=== PATIENT | male | born 1965 | race African-American/Black ===

== ENCOUNTER 2017-07-14 10:46 | Emergency (ER) | payer OTHER ==
[2017-07-14 10:56] VITALS: TEMP 98.1
[2017-07-14 11:15] LABS: Glucose,Whole Blood 392 mg/dL (75-99)
[2017-07-14] MEDS ORDERED: SODIUM CHLORIDE 0.9% 1,000 ML IV ONE (11:45)
[2017-07-14] MEDS ORDERED: INSULIN ASPART 100 UNIT/ML 1 ML 10 ML VIAL SQ ONE (11:45)
[2017-07-14 12:17] VITALS: BP 135/92; PULSE 83; RESP 20
[2017-07-14 12:19] LABS: Basophils % (A) 0 %; Eosinophils % (A) 0 %; HCT 48.3 % (39.0-53.0); HGB 15.5 gm/dL (13.0-17.5); Lymphocytes # (A) 2.3 k/uL (1.0-4.8); Lymphocytes % (A) 31 %; MCHC 32.1 g/dL (31.0-37.0); MCV 90.1 fL (80.0-100.0); Mean Platelet Volume 9.1; Monocytes # (A) 0.4 k/uL (0-1.0); Monocytes % (A) 6 %; Neutrophils # (A) 4.5 k/uL (1.3-7.7); Neutrophils % (A) 61 %; Platelet Count 161 k/uL (150-450); RBC 5.36 m/uL (4.30-5.90); RDW 13.4 % (11.5-15.5); WBC 7.3 k/uL (3.8-10.6)
[2017-07-14 12:34] LABS: ALT 32 U/L (21-72); AST 29 U/L (17-59); Albumin 4.1 g/dL (3.5-5.0); Alkaline Phosphatase 81 U/L (38-126); Anion Gap 18 mmol/L; Blood Urea Nitrogen 20 mg/dL (9-20); Calcium 10.3 mg/dL (8.4-10.2); Carbon Dioxide 20 mmol/L (22-30); Chloride 99 mmol/L (98-107); Potassium 4.7 mmol/L (3.5-5.1); Sodium 137 mmol/L (137-145); Total Bilirubin 0.6 mg/dL (0.2-1.3); Total Protein 7.2 g/dL (6.3-8.2)
[2017-07-14 12:36] LABS: Glucose,Whole Blood 407 mg/dL (75-99)
--- NOTE | 2017-07-14 12:36 | ED ---
Recheck HPI - General Chief Complaint: Recheck/Abnormal Lab/Rx Stated Complaint: High blood sugar Time Seen by Provider: 07/14/17 11:35 Source: patient, RN notes reviewed Mode of arrival: ambulatory Limitations: no limitations - History of Present Illness Initial Comments: This a 52-year-old male presents emergency Department chief complaint of elevated blood sugar. Patient states that he used to be on metformin but states he took himself off it because his blood sugar was normal. Patient states that he has not been eating well states she's been eating very poorly actually. Patient states that he has polydipsia polyuria. Patient states he has an appointment with a new primary care physician on 31 of July. Patient is concerned because he knows blood sugar is elevated. He denies chest pain, shortness breath, headache or dizziness. Denies any nausea vomiting diarrhea constipation. - Related Data Home Medications Medication Instructions Recorded Confirmed Unable To Assess [Unable to Assess] 07/14/17 07/14/17 Allergies Allergy/AdvReac Type Severity Reaction Status Date / Time amoxicillin Allergy Rash/Hives Verified 07/14/17 12:27 Review of Systems ROS Statement: Those systems with pertinent positive or pertinent negative responses have been documented in the HPI. ROS Other: All systems not noted in ROS Statement are negative. Past Medical History Past Medical History: Hypertension Additional Past Medical History / Comment(s): Borderline diabetic, CHF History of Any Multi-Drug Resistant Organisms: None Reported Additional Past Surgical History / Comment(s): heart cath-no stent placement 2018 Past Psychological History: Anxiety Smoking Status: Current some day smoker Past Alcohol Use History: None Reported Past Drug Use History: None Reported General Exam Limitations: no limitations General appearance: alert, in no apparent distress Head exam: Present: atraumatic, normocephalic, normal inspection Eye exam: Present: normal appearance, PERRL, EOMI. Absent: scleral icterus, conjunctival injection, periorbital swelling ENT exam: Present: normal exam, mucous membranes moist Neck exam: Present: normal inspection. Absent: tenderness, meningismus, lymphadenopathy Respiratory exam: Present: normal lung sounds bilaterally. Absent: respiratory distress, wheezes, rales, rhonchi, stridor Cardiovascular Exam: Present: regular rate, normal rhythm, normal heart sounds. Absent: systolic murmur, diastolic murmur, rubs, gallop, clicks GI/Abdominal exam: Present: soft, normal bowel sounds. Absent: distended, tenderness, guarding, rebound, rigid Neurological exam: Present: alert, oriented X3, CN II-XII intact Skin exam: Present: warm, dry, intact, normal color. Absent: rash Course Vital Signs 07/14/17 07/14/17 10:52 12:15 Temperature 98.1 F Pulse Rate 71 83 Respiratory 18 20 Rate Blood Pressure 165/100 135/92 O2 Sat by Pulse 96 95 Oximetry Medical Decision Making - Medical Decision Making 52-year-old male presents from for hyperglycemia. Patient is hungry and DKA. Patient be admitted under city call. - Lab Data Result diagrams: 07/14/17 12:03 07/14/17 12:03 Lab Results 07/14/17 07/14/17 07/14/17 Range/Units 11:12 12:03 12:03 WBC 7.3 (3.8-10.6) k/uL RBC 5.36 (4.30-5.90) m/uL Hgb 15.5 (13.0-17.5) gm/dL Hct 48.3 (39.0-53.0) % MCV 90.1 (80.0-100.0) fL MCH 29.0 (25.0-35.0) pg MCHC 32.1 (31.0-37.0) g/dL RDW 13.4 (11.5-15.5) % Plt Count 161 (150-450) k/uL Neutrophils % 61 % Lymphocytes % 31 % Monocytes % 6 % Eosinophils % 0 % Basophils % 0 % Neutrophils # 4.5 (1.3-7.7) k/uL Lymphocytes # 2.3 (1.0-4.8) k/uL Monocytes # 0.4 (0-1.0) k/uL Eosinophils # 0.0 (0-0.7) k/uL Basophils # 0.0 (0-0.2) k/uL Sodium 137 (137-145) mmol/L Potassium 4.7 (3.5-5.1) mmol/L Chloride 99 (98-107) mmol/L Carbon Dioxide 20 L (22-30) mmol/L Anion Gap 18 mmol/L BUN 20 (9-20) mg/dL Creatinine 0.96 (0.66-1.25) mg/dL Est GFR (CKD-EPI)AfAm >90 (>60 ml/min/1.73 sqM) Est GFR (CKD-EPI)NonAf >90 (>60 ml/min/1.73 sqM) Glucose 472 H* (74-99) mg/dL POC Glucose (mg/dL) 392 H (75-99) mg/dL POC Glu Aircraft Maintenance Engineer ID Mari Beltran Calcium 10.3 H (8.4-10.2) mg/dL Total Bilirubin 0.6 (0.2-1.3) mg/dL AST 29 (17-59) U/L ALT 32 (21-72) U/L Alkaline Phosphatase 81 (38-126) U/L Total Protein 7.2 (6.3-8.2) g/dL Albumin 4.1 (3.5-5.0) g/dL Acetone, Qual Positive (Negative) 07/14/17 Range/Units 12:29 WBC (3.8-10.6) k/uL RBC (4.30-5.90) m/uL Hgb (13.0-17.5) gm/dL Hct (39.0-53.0) % MCV (80.0-100.0) fL MCH (25.0-35.0) pg MCHC (31.0-37.0) g/dL RDW (11.5-15.5) % Plt Count (150-450) k/uL Neutrophils % % Lymphocytes % % Monocytes % % Eosinophils % % Basophils % % Neutrophils # (1.3-7.7) k/uL Lymphocytes # (1.0-4.8) k/uL Monocytes # (0-1.0) k/uL Eosinophils # (0-0.7) k/uL Basophils # (0-0.2) k/uL Sodium (137-145) mmol/L Potassium (3.5-5.1) mmol/L Chloride (98-107) mmol/L Carbon Dioxide (22-30) mmol/L Anion Gap mmol/L BUN (9-20) mg/dL Creatinine (0.66-1.25) mg/dL Est GFR (CKD-EPI)AfAm (>60 ml/min/1.73 sqM) Est GFR (CKD-EPI)NonAf (>60 ml/min/1.73 sqM) Glucose (74-99) mg/dL POC Glucose (mg/dL) 407 H (75-99) mg/dL POC Glu Aircraft Maintenance Engineer ID Ruiz Rodrigues Calcium (8.4-10.2) mg/dL Total Bilirubin (0.2-1.3) mg/dL AST (17-59) U/L ALT (21-72) U/L Alkaline Phosphatase (38-126) U/L Total Protein (6.3-8.2) g/dL Albumin (3.5-5.0) g/dL Acetone, Qual (Negative) Disposition Clinical Impression: DKA (diabetic ketoacidoses) Disposition: ADMITTED IP TO THIS [facility] Condition: Stable Referrals: None,Stated [Primary Care Provider] - 1-2 days
[2017-07-14 12:46] LABS: Glucose 472 mg/dL (74-99)
--- NOTE | 2017-07-14 13:29 | ED ---
Medical Decision Making - Medical Decision Making I had extensive conversation with the patient regarding his current condition and how severe it is condition is. Patient states he understands that he is very sick but states that he cannot stay in the hospital because he has commitments outside of the hospital. I did explain that this is something he may from if not properly treated. Patient states he he understands this. Patient again refuses to stay in the hospital he is making clear decisions at this time. Patient will sign out AGAINST MEDICAL ADVICE. - Lab Data Result diagrams: 07/14/17 12:03 07/14/17 12:03 Lab Results 07/14/17 07/14/17 07/14/17 Range/Units 11:12 12:03 12:03 WBC 7.3 (3.8-10.6) k/uL RBC 5.36 (4.30-5.90) m/uL Hgb 15.5 (13.0-17.5) gm/dL Hct 48.3 (39.0-53.0) % MCV 90.1 (80.0-100.0) fL MCH 29.0 (25.0-35.0) pg MCHC 32.1 (31.0-37.0) g/dL RDW 13.4 (11.5-15.5) % Plt Count 161 (150-450) k/uL Neutrophils % 61 % Lymphocytes % 31 % Monocytes % 6 % Eosinophils % 0 % Basophils % 0 % Neutrophils # 4.5 (1.3-7.7) k/uL Lymphocytes # 2.3 (1.0-4.8) k/uL Monocytes # 0.4 (0-1.0) k/uL Eosinophils # 0.0 (0-0.7) k/uL Basophils # 0.0 (0-0.2) k/uL Sodium 137 (137-145) mmol/L Potassium 4.7 (3.5-5.1) mmol/L Chloride 99 (98-107) mmol/L Carbon Dioxide 20 L (22-30) mmol/L Anion Gap 18 mmol/L BUN 20 (9-20) mg/dL Creatinine 0.96 (0.66-1.25) mg/dL Est GFR (CKD-EPI)AfAm >90 (>60 ml/min/1.73 sqM) Est GFR (CKD-EPI)NonAf >90 (>60 ml/min/1.73 sqM) Glucose 472 H* (74-99) mg/dL POC Glucose (mg/dL) 392 H (75-99) mg/dL POC Glu [employer] Professional ID Mari Beltran Calcium 10.3 H (8.4-10.2) mg/dL Total Bilirubin 0.6 (0.2-1.3) mg/dL AST 29 (17-59) U/L ALT 32 (21-72) U/L Alkaline Phosphatase 81 (38-126) U/L Total Protein 7.2 (6.3-8.2) g/dL Albumin 4.1 (3.5-5.0) g/dL Acetone, Qual Positive (Negative) 07/14/17 Range/Units 12:29 WBC (3.8-10.6) k/uL RBC (4.30-5.90) m/uL Hgb (13.0-17.5) gm/dL Hct (39.0-53.0) % MCV (80.0-100.0) fL MCH (25.0-35.0) pg MCHC (31.0-37.0) g/dL RDW (11.5-15.5) % Plt Count (150-450) k/uL Neutrophils % % Lymphocytes % % Monocytes % % Eosinophils % % Basophils % % Neutrophils # (1.3-7.7) k/uL Lymphocytes # (1.0-4.8) k/uL Monocytes # (0-1.0) k/uL Eosinophils # (0-0.7) k/uL Basophils # (0-0.2) k/uL Sodium (137-145) mmol/L Potassium (3.5-5.1) mmol/L Chloride (98-107) mmol/L Carbon Dioxide (22-30) mmol/L Anion Gap mmol/L BUN (9-20) mg/dL Creatinine (0.66-1.25) mg/dL Est GFR (CKD-EPI)AfAm (>60 ml/min/1.73 sqM) Est GFR (CKD-EPI)NonAf (>60 ml/min/1.73 sqM) Glucose (74-99) mg/dL POC Glucose (mg/dL) 407 H (75-99) mg/dL POC Glu [employer] Professional ID Ruiz Rodrigues Calcium (8.4-10.2) mg/dL Total Bilirubin (0.2-1.3) mg/dL AST (17-59) U/L ALT (21-72) U/L Alkaline Phosphatase (38-126) U/L Total Protein (6.3-8.2) g/dL Albumin (3.5-5.0) g/dL Acetone, Qual (Negative) Disposition Clinical Impression: DKA (diabetic ketoacidoses) Disposition: Left Against Medical Advice Condition: Stable Referrals: None,Stated [Primary Care Provider] - 1-2 days
[2017-07-14] MEDS ORDERED: INSULIN REGULAR 100 UNIT in SODIUM CHLORIDE 0.9% 100 ML IV SCH (13:30)
[2017-07-14] MEDS ORDERED: SODIUM CHLORIDE 0.9% 1,000 ML IV SCH (13:30)
[2017-07-14 13:40] LABS: Glucose,Whole Blood 378 mg/dL (75-99)
[2017-07-14] MEDS ORDERED: D5-0.45% NACL WITH KCL 20MEQ/L 1,000 ML IV SCH (15:30)
== END 2017-07-14 14:05 | disposition left against medical advice (07) ==
LOC: EC 10:46
DX: E11.10 Type 2 diabetes mellitus with ketoacidosis without coma (principal); F17.200 Nicotine dependence, unspecified, uncomplicated; Z88.0 Allergy status to penicillin
CPT/HCPCS: 36415; 80053; 82009; 85025; 96360; 99284

== ENCOUNTER 2017-07-21 10:28 | Inpatient (IN) | payer OTHER ==
[2017-07-21] MEDS ORDERED: SODIUM CHLORIDE 0.9% 2,000 ML IV STA (10:45)
[2017-07-21] MEDS ORDERED: SODIUM CHLORIDE 0.9% 2,000 ML IV ONE (10:45)
[2017-07-21 11:30] LABS: Appearance,Urine Clear (Clear); Bilirubin,Urine Negative (Negative); Blood,Urine Negative (Negative); Color,Urine Light Yellow; Glucose,Urine (UA) 4+ (Negative); Leukocyte Esterase,Urine Negative (Negative); Nitrite,Urine Negative (Negative); Protein,Urine Negative (Negative); Urobilinogen,Urine <2.0 mg/dL (<2.0)
[2017-07-21 11:35] LABS: Basophils % (A) 0 %; Eosinophils % (A) 1 %; HCT 52.5 % (39.0-53.0); HGB 15.8 gm/dL (13.0-17.5); Hypochromasia Moderate; Lymphocytes # (A) 1.5 k/uL (1.0-4.8); Lymphocytes % (A) 21 %; MCH 28.3 pg (25.0-35.0); MCHC 30.1 g/dL (31.0-37.0); Mean Platelet Volume 9.9; Monocytes # (A) 0.4 k/uL (0-1.0); Monocytes % (A) 6 %; Neutrophils # (A) 4.9 k/uL (1.3-7.7); Neutrophils % (A) 69 %; Platelet Count 149 k/uL (150-450); RBC 5.59 m/uL (4.30-5.90); RDW 13.6 % (11.5-15.5); WBC 7.1 k/uL (3.8-10.6)
[2017-07-21 11:38] LABS: AST 21 U/L (17-59); Albumin 4.4 g/dL (3.5-5.0); Amylase 72 U/L (30-110); Blood Urea Nitrogen 20 mg/dL (9-20); Calcium 11.3 mg/dL (8.4-10.2); Carbon Dioxide 19 mmol/L (22-30); Chloride 95 mmol/L (98-107); Lipase 308 U/L (23-300); Potassium 4.8 mmol/L (3.5-5.1); Total Bilirubin 0.5 mg/dL (0.2-1.3); Total Protein 7.4 g/dL (6.3-8.2)
[2017-07-21 11:42] LABS: ALT 34 U/L (21-72); Alkaline Phosphatase 93 U/L (38-126); Anion Gap 22 mmol/L; Sodium 136 mmol/L (137-145)
[2017-07-21 11:50] LABS: Glucose 652 mg/dL (74-99)
[2017-07-21] MEDS ORDERED: INSULIN REGULAR 100 UNIT/ML VIAL IV ONE (11:54)
[2017-07-21 11:57] LABS: Ketones,Urine 2+ (Negative)
--- NOTE | 2017-07-21 11:58 | ED ---
Recheck HPI - General Chief Complaint: Recheck/Abnormal Lab/Rx Stated Complaint: High blood pressure/Sugar Time Seen by Provider: 07/21/17 10:45 Source: patient, RN notes reviewed Mode of arrival: ambulatory Limitations: no limitations - History of Present Illness Initial Comments: This a 32-year-old male present emergency department for recheck abnormal labs. Patient was here one week ago for hyperglycemia uncontrolled diabetes. Patient was supposed be admitted but patient refused at that time. Patient left AGAINST MEDICAL ADVICE. Patient returns today stating feels worse states that he cannot eat he states his blood sugars probably elevated and concerned about his blood pressure. He has no current chest pain or shortness of breath. Patient states is constant drinking fluids, has a urinating. Patient used to be on metformin. - Related Data Home Medications Medication Instructions Recorded Confirmed Atorvastatin Calcium [Lipitor] 40 mg PO DAILY 07/21/17 07/21/17 Carvedilol [Coreg] 12.5 mg PO BID 07/21/17 07/21/17 Furosemide [Lasix] 40 mg PO DAILY 07/21/17 07/21/17 Lisinopril [Prinivil] 20 mg PO DAILY 07/21/17 07/21/17 Allergies Allergy/AdvReac Type Severity Reaction Status Date / Time amoxicillin Allergy Rash/Hives Verified 07/21/17 10:56 Review of Systems ROS Statement: Those systems with pertinent positive or pertinent negative responses have been documented in the HPI. ROS Other: All systems not noted in ROS Statement are negative. Past Medical History Past Medical History: Diabetes Mellitus, Hypertension Additional Past Medical History / Comment(s): CHF History of Any Multi-Drug Resistant Organisms: None Reported Additional Past Surgical History / Comment(s): heart cath-no stent placement 2018 Past Psychological History: Anxiety Smoking Status: Current some day smoker Past Alcohol Use History: None Reported Past Drug Use History: None Reported General Exam Limitations: no limitations General appearance: alert, in no apparent distress Head exam: Present: atraumatic, normocephalic, normal inspection Eye exam: Present: normal appearance, PERRL, EOMI. Absent: scleral icterus, conjunctival injection, periorbital swelling ENT exam: Present: normal exam, normal oropharynx, mucous membranes moist Neck exam: Present: normal inspection. Absent: tenderness, meningismus, lymphadenopathy Respiratory exam: Present: normal lung sounds bilaterally. Absent: respiratory distress, wheezes, rales, rhonchi, stridor Cardiovascular Exam: Present: normal rhythm, tachycardia, normal heart sounds. Absent: systolic murmur, diastolic murmur, rubs, gallop, clicks GI/Abdominal exam: Present: soft, normal bowel sounds. Absent: distended, tenderness, guarding, rebound, rigid Skin exam: Present: warm, dry, intact, normal color. Absent: rash Course Vital Signs 07/21/17 07/21/17 10:39 11:30 Temperature 98.1 F 97.2 F L Pulse Rate 108 H 101 H Respiratory 18 20 Rate Blood Pressure 162/96 156/97 O2 Sat by Pulse 94 L 99 Oximetry Medical Decision Making - Lab Data Result diagrams: 07/21/17 11:15 07/21/17 11:15 Lab Results 07/21/17 07/21/17 07/21/17 Range/Units 11:15 11:15 11:15 WBC 7.1 (3.8-10.6) k/uL RBC 5.59 (4.30-5.90) m/uL Hgb 15.8 (13.0-17.5) gm/dL Hct 52.5 (39.0-53.0) % MCV 94.0 (80.0-100.0) fL MCH 28.3 (25.0-35.0) pg MCHC 30.1 L (31.0-37.0) g/dL RDW 13.6 (11.5-15.5) % Plt Count 149 L (150-450) k/uL Neutrophils % 69 % Lymphocytes % 21 % Monocytes % 6 % Eosinophils % 1 % Basophils % 0 % Neutrophils # 4.9 (1.3-7.7) k/uL Lymphocytes # 1.5 (1.0-4.8) k/uL Monocytes # 0.4 (0-1.0) k/uL Eosinophils # 0.0 (0-0.7) k/uL Basophils # 0.0 (0-0.2) k/uL Hypochromasia Moderate Sodium 136 L (137-145) mmol/L Potassium 4.8 (3.5-5.1) mmol/L Chloride 95 L (98-107) mmol/L Carbon Dioxide 19 L (22-30) mmol/L Anion Gap 22 mmol/L BUN 20 (9-20) mg/dL Creatinine 0.97 (0.66-1.25) mg/dL Est GFR (CKD-EPI)AfAm >90 (>60 ml/min/1.73 sqM) Est GFR (CKD-EPI)NonAf >90 (>60 ml/min/1.73 sqM) Glucose 652 H* (74-99) mg/dL Calcium 11.3 H (8.4-10.2) mg/dL Total Bilirubin 0.5 (0.2-1.3) mg/dL AST 21 (17-59) U/L ALT 34 (21-72) U/L Alkaline Phosphatase 93 (38-126) U/L Total Protein 7.4 (6.3-8.2) g/dL Albumin 4.4 (3.5-5.0) g/dL Amylase 72 (30-110) U/L Lipase 308 H (23-300) U/L Urine Color Light Yellow Urine Appearance Clear (Clear) Urine pH 5.0 (5.0-8.0) Ur Specific [place] 1.030 (1.001-1.035) Urine Protein Negative (Negative) Urine Glucose (UA) 4+ H (Negative) Urine Ketones 2+ H (Negative) Urine Blood Negative (Negative) Urine Nitrite Negative (Negative) Urine Bilirubin Negative (Negative) Urine Urobilinogen <2.0 (<2.0) mg/dL Ur Leukocyte Esterase Negative (Negative) Acetone, Qual (Negative) 07/21/17 Range/Units 11:15 WBC (3.8-10.6) k/uL RBC (4.30-5.90) m/uL Hgb (13.0-17.5) gm/dL Hct (39.0-53.0) % MCV (80.0-100.0) fL MCH (25.0-35.0) pg MCHC (31.0-37.0) g/dL RDW (11.5-15.5) % Plt Count (150-450) k/uL Neutrophils % % Lymphocytes % % Monocytes % % Eosinophils % % Basophils % % Neutrophils # (1.3-7.7) k/uL Lymphocytes # (1.0-4.8) k/uL Monocytes # (0-1.0) k/uL Eosinophils # (0-0.7) k/uL Basophils # (0-0.2) k/uL Hypochromasia Sodium (137-145) mmol/L Potassium (3.5-5.1) mmol/L Chloride (98-107) mmol/L Carbon Dioxide (22-30) mmol/L Anion Gap mmol/L BUN (9-20) mg/dL Creatinine (0.66-1.25) mg/dL Est GFR (CKD-EPI)AfAm (>60 ml/min/1.73 sqM) Est GFR (CKD-EPI)NonAf (>60 ml/min/1.73 sqM) Glucose (74-99) mg/dL Calcium (8.4-10.2) mg/dL Total Bilirubin (0.2-1.3) mg/dL AST (17-59) U/L ALT (21-72) U/L Alkaline Phosphatase (38-126) U/L Total Protein (6.3-8.2) g/dL Albumin (3.5-5.0) g/dL Amylase (30-110) U/L Lipase (23-300) U/L Urine Color Urine Appearance (Clear) Urine pH (5.0-8.0) Ur Specific [place] (1.001-1.035) Urine Protein (Negative) Urine Glucose (UA) (Negative) Urine Ketones (Negative) Urine Blood (Negative) Urine Nitrite (Negative) Urine Bilirubin (Negative) Urine Urobilinogen (<2.0) mg/dL Ur Leukocyte Esterase (Negative) Acetone, Qual Positive (Negative) Disposition Clinical Impression: DKA (diabetic ketoacidoses) Disposition: ADMITTED IP TO [facility] Condition: Fair Referrals: None,Stated [Primary Care Provider] - 1-2 days
[2017-07-21 13:03] LABS: Glucose,Whole Blood 418 mg/dL (75-99)
[2017-07-21] MEDS: INSULIN REGULAR 100 UNIT in SODIUM CHLORIDE 0.9% 100 ML IV SCH ×2 (13:09→17:46)
[2017-07-21] MEDS: SODIUM CHLORIDE 0.9% 1,000 ML IV SCH ×2 (13:09→18:15)
[2017-07-21 14:00] LABS: Glucose,Whole Blood 357 mg/dL (75-99)
--- NOTE | 2017-07-21 14:44 | P.HPIM ---
History of Present Illness H&P Date: 07/21/17 Chief Complaint: Polyuria, polydipsia, fatigue 52-year-old male with history of CHF, type 2 diabetes mellitus, hypertension. Patient presented to the hospital with few day history of feeling fatigued, complaining of polydipsia and polyuria. He also reports feeling wheezy at times without collapsing or losing consciousness or blacking out. He explained that he feels "drunk". He admits that he came in a week ago to the ER due to feeling similar symptoms however he decided to leave the hospital as he wasn't ready stay. He reports that he was diagnosed with diabetes 10 years ago but he took himself off metformin for years ago when he found that his sugars were generally running normal and he's been trying to watch his diet however a week ago before the last time he came into the hospital to the ED he pinched on sugary drinks and cakes he admits that he really ate a lot of ice cream and sugary stuff. After which she ended up feeling sick in the stomach and decided come the hospital that's when he was found to be in DKA and he decided to leave AGAINST MEDICAL ADVICE at that time. He also add that in February 2017 he was having some shortness of breath at rest without any chest pain he was admitted to a different [facility] where he had a left heart cath that was found to be clean, however he was diagnosed with congestive heart failure and he recalls that his left ventricular ejection fraction was around 30%. He does not have a PCP however he got some medications in February that lasted him for 2 months and then he got a refill from an urgent care who gave him 2 months supply however he is currently running out of some of his medications. Otherwise patient denies any trouble breathing or chest pain, denies any orthopnea, denies any leg swelling. He denies any coughing fevers or chills. Advanced directives discussed with the patient, he elected to be a full code and named his Brittney marr as a surrogate decision-maker Review of Systems Constitutional: Patient denies fever, denies chills, denies night sweating, denies significant weight changes Eyes: Patient denies visual changes, denies eye pain ENT: Patient denies ear pain, denies rhinorrhea, denies sore throat Cardiovascular: Patient denies chest pain, denies exertional dyspnea, denies peripheral leg edema, denies orthopnea, denies paroxysmal nocturnal dyspnea Respiratory:Patient denies cough, denies wheezing, denies shortness of breath Gastrointestinal: Patient denies diarrhea, denies constipation, denies nausea , denies vomiting, denies abdominal pain Genitourinary: Patient denies dysuria, denies hematuria, reports polyuria, denies genital lesions Musculoskeletal: Patient denies muscle pain, denies joint pain Psychiatric: Patient denies changes in mood or memory, denies suicidal ideation, denies anxiety Endocrine: Patient denies heat intolerance, denies cold intolerance Neurological: Patient denies focal neurologic deficits, denies weakness, denies numbness, denies tingling Hem/Lymphatic: Patient denies bleeding tendency, denies bruising, denies swollen lymph glands Allergic/Immun: Patient denies recent allergic reactions Skin: Patient denies rashes, denies pruritis, denies ulcers Past Medical History Past Medical History: Heart Failure, Diabetes Mellitus, Hypertension Additional Past Medical History / Comment(s): NIDDM type II diagnosed in 2007/ pt took self off diabetic medications in 2013 because he felt his blood sugars were good because he had been getting normal blood glucose numbers, R knee arthritis, pt states he does not think he has high cholesterol. CHF with a ventricular ejection fraction of 30% History of Any Multi-Drug Resistant Organisms: None Reported Past Surgical History: Heart Catheterization, Orthopedic Surgery Additional Past Surgical History / Comment(s): 02/2017 cardiac cath at [facility]-normal, R knee arthroscopy Past Anesthesia/Blood Transfusion Reactions: No Reported Reaction Past Psychological History: Anxiety Additional Psychological History / Comment(s): Pt resides with his spouse. He is independent. He is currently unemployed but states he is to start a new job soon. Smoking Status: Current every day smoker Past Alcohol Use History: Occasional Additional Past Alcohol Use History / Comment(s): Pt started smoking in 1981 and is a ppd smoker. Past Drug Use History: None Reported - Past Family History Mother Additional Family Medical History / Comment(s): Mother has psychological problems., of ovarian cancer Father History Unknown: Yes Medications and Allergies Home Medications Medication Instructions Recorded Confirmed Type Atorvastatin Calcium [Lipitor] 40 mg PO DAILY 07/21/17 07/21/17 History Carvedilol [Coreg] 12.5 mg PO BID 07/21/17 07/21/17 History Furosemide [Lasix] 40 mg PO DAILY 07/21/17 07/21/17 History Lisinopril [Prinivil] 20 mg PO DAILY 07/21/17 07/21/17 History Allergies Allergy/AdvReac Type Severity Reaction Status Date / Time amoxicillin Allergy Rash/Hives Verified 07/21/17 10:56 Physical Exam Vitals: Vital Signs Temp Pulse Resp BP Pulse Ox 07/21/17 13:00 98.3 F 87 18 161/89 97 07/21/17 11:30 97.2 F L 101 H 20 156/97 99 07/21/17 10:39 98.1 F 108 H 18 162/96 94 L Intake and Output 07/20/17 07/21/17 07/21/17 22:59 06:59 14:59 Output Total 800 Balance -800 Output: Urine 800 Other: Voiding Method Toilet Weight 142.882 kg Constitutional: No acute distress, conversant, pleasant Eyes: Anicteric sclerae, moist conjunctiva, no lid-lag Pupils equal round reactive to light ENMT: NC/AT Oropharynx clear,, dry mucous membranes, no erythema, or exudates Neck: Supple, FROM, no masses, or JVD No carotid bruits No thyromegaly Lungs: Clear to auscultation Clear to percussion Normal respiratory effort, no accessory muscle use Cardiovascular: Heart regular in rate and rhythm, No murmurs, gallops, or rubs No peripheral edema Abdominal: Soft, obese limiting exam Nontender, no guarding, rebound or rigidity Abdomen moving with respiration Normoactive bowel sounds No hepatomegaly, No splenomegaly No palpable mass No abdominal wall hernia noted Skin: Normal temperature, tone, texture, turgor No induration No subcutaneous nodules No rash, lesions No ulcers Extremities: No digital cyanosis No clubbing Pedal pulses intact and symmetrical Radial pulses intact and symmetrical No calf tenderness Psychiatric: Alert and oriented to person, place and time Appropriate affect fair judgment Neuro Muscles Strength 5/5 in all 4 extremities Sensation to light touch grossly present throughout Cranial nerves II-XII grossly intact No focal sensory deficits Lymphatics: no palpable cervical or supraclavicular , or inguinal lymph nodes Results CBC & Chem 7: 07/21/17 11:15 07/21/17 11:15 Labs: Abnormal Lab Results - Last 24 Hours (Table) 07/21/17 07/21/17 07/21/17 Range/Units 11:15 11:15 11:15 MCHC 30.1 L (31.0-37.0) g/dL Plt Count 149 L (150-450) k/uL Sodium 136 L (137-145) mmol/L Chloride 95 L (98-107) mmol/L Carbon Dioxide 19 L (22-30) mmol/L Glucose 652 H* (74-99) mg/dL POC Glucose (mg/dL) (75-99) mg/dL Calcium 11.3 H (8.4-10.2) mg/dL Lipase 308 H (23-300) U/L Urine Glucose (UA) 4+ H (Negative) Urine Ketones 2+ H (Negative) 07/21/17 07/21/17 Range/Units 13:01 13:57 MCHC (31.0-37.0) g/dL Plt Count (150-450) k/uL Sodium (137-145) mmol/L Chloride (98-107) mmol/L Carbon Dioxide (22-30) mmol/L Glucose (74-99) mg/dL POC Glucose (mg/dL) 418 H 357 H (75-99) mg/dL Calcium (8.4-10.2) mg/dL Lipase (23-300) U/L Urine Glucose (UA) (Negative) Urine Ketones (Negative) Thrombosis Risk Factor Assmnt - Choose All That Apply Any of the Below Risk Factors Present?: Yes Each Factor Represents 1 point: Age 41-60 years, Obesity (BMI >25) Other Risk Factors: No Other congenital or acquired thrombophilia - If yes, enter type in comment: No Thrombosis Risk Factor Assessment Total Risk Factor Score: 2 Thrombosis Risk Factor Assessment Level: Low Risk Assessment and Plan Assessment: 52-year-old male with history of CHF with left ventricular ejection fraction of 30%, hypertension, type 2 diabetes mellitus. Patient presented the hospital with feeling fatigued, complaining of polydipsia polyuria. Patient admits that he has not been compliant with his diabetic medications as he stopped metformin or years ago and has been watching his diet. However he binged on sugary food and drinks a week ago that's when he presented to the hospital with similar symptoms however he decided to leave the hospital AGAINST MEDICAL ADVICE. However he did not get better over the past few days and decided to come back Plan: #DKA secondary to noncompliance with medications and diet. #Mild anion gap metabolic acidosis secondary to DKA DKA protocol and be followed. Patient started on insulin drip, 0.9 saline IV hydration She received boluses of normal saline Continue with monitoring blood sugar every hour Check electrolytes every 2-4 hours Check A1c Check lipid profile Check TSH Patient counseled regarding dietary modification and weight loss Patient was also counseled to consider following up outpatient with annual eye exams, with exams, and blood test to check for renal function and microalbumin.. #Hypercalcemia, most likely due to dehydration Recheck calcium level after IV fluid hydration #Chronic systolic congestive heart failure, nonischemic, currently compensated Continue Coreg, lisinopril Daily weights #Uncontrolled hypertension, secondary to medication noncompliance Resume Coreg and lisinopril Monitor vital signs #DVT prophylaxis heparin subcu 3 times a day #Diet nothing by mouth now #Tobacco smoking abuse Patient counseled to quit smoking Dictating replacement therapy offered #Obesity Patient counseled for lifestyle modification weight loss Preformed a thorough record review from recent hospitalization when he visited the ED and had DKA however left AGAINST MEDICAL ADVICE from the emergency department. As summarized in HPI Surrogate decision-maker: Patient Brittney Marr CODE STATUS: Full code Discussed with: Patient, ER, RN Anticipated discharge: 48-[address]: Home A total of 50 minutes were spent on the care of this complex patient more than 50% of the time was spent in counseling and care coordination.
[2017-07-21] MEDS ORDERED: NALOXONE 0.4 MG/ML 1 ML VIAL IV PRN (14:47)
[2017-07-21] MEDS ORDERED: Magnesium Replacement Protocol 1 EACH MISC MISCELLANE PRN (14:47)
[2017-07-21] MEDS ORDERED: Potassium Replacement Protocol 1 EACH MISC MISCELLANE PRN (14:47)
[2017-07-21 14:58] LABS: Glucose,Whole Blood 327 mg/dL (75-99)
[2017-07-21 15:58] LABS: Glucose,Whole Blood 225 mg/dL (75-99)
[2017-07-21] MEDS: D5-0.45% NACL WITH KCL 20MEQ/L 1,000 ML IV SCH (16:05)
[2017-07-21 17:10] LABS: Glucose,Whole Blood 177 mg/dL (75-99)
[2017-07-21 17:16] LABS: Anion Gap 14 mmol/L; Blood Urea Nitrogen 16 mg/dL (9-20); Carbon Dioxide 27 mmol/L (22-30); Chloride 102 mmol/L (98-107); Glucose 156 mg/dL (74-99); Phosphorus 1.9 mg/dL (2.5-4.5); Potassium 3.7 mmol/L (3.5-5.1); Sodium 143 mmol/L (137-145)
[2017-07-21] MEDS: LISINOPRIL 20 MG TAB PO SCH (17:16)
[2017-07-21] MEDS: INSULIN ASPART 100 UNIT/ML 1 ML 10 ML VIAL SQ SCH (18:14)
[2017-07-21] MEDS: CARVEDILOL 12.5 MG TAB PO SCH (18:22)
[2017-07-21] MEDS: HEPARIN SODIUM,PORCINE 5,000 UNIT/ML 1 ML VIAL SQ SCH (18:23)
[2017-07-21 18:27] LABS: Glucose,Whole Blood 96 mg/dL (75-99)
[2017-07-21 18:56] LABS: Glucose,Whole Blood 95 mg/dL (75-99)
[2017-07-21 19:38] LABS: Glucose,Whole Blood 147 mg/dL (75-99)
[2017-07-21 20:52] LABS: Anion Gap 12 mmol/L; Blood Urea Nitrogen 15 mg/dL (9-20); Carbon Dioxide 23 mmol/L (22-30); Chloride 103 mmol/L (98-107); Glucose 149 mg/dL (74-99); Phosphorus 2.2 mg/dL (2.5-4.5); Potassium 3.7 mmol/L (3.5-5.1); Sodium 138 mmol/L (137-145)
[2017-07-21 21:00] LABS: Glucose,Whole Blood 160 mg/dL (75-99)
[2017-07-21] MEDS ORDERED: INSULIN DETEMIR 100 UNIT/ML 10 ML VIAL SQ SCH (21:00)
[2017-07-21] MEDS ORDERED: ATORVASTATIN 40 MG TAB PO SCH (21:00)
[2017-07-21 22:00] LABS: Glucose,Whole Blood 121 mg/dL (75-99)
[2017-07-21 22:59] LABS: Glucose,Whole Blood 128 mg/dL (75-99)
[2017-07-21 23:40] LABS: Glucose,Whole Blood 110 mg/dL (75-99)
[2017-07-22 00:36] LABS: Glucose,Whole Blood 118 mg/dL (75-99)
[2017-07-22] MEDS ORDERED: INSULIN NPH 300 UNIT/3 ML VIAL SQ ONE ×2 (00:44→10:45)
[2017-07-22] MEDS: INSULIN ASPART 100 UNIT/ML 1 ML 10 ML VIAL SQ SCH ×3 (00:47→12:14)
[2017-07-22] MEDS: D5-0.45% NACL WITH KCL 20MEQ/L 1,000 ML IV SCH (00:48)
[2017-07-22] MEDS: SODIUM CHLORIDE 0.9% 1,000 ML IV SCH (00:48)
[2017-07-22 01:06] LABS: Phosphorus 2.1 mg/dL (2.5-4.5); Potassium 4.1 mmol/L (3.5-5.1)
[2017-07-22] MEDS: HEPARIN SODIUM,PORCINE 5,000 UNIT/ML 1 ML VIAL SQ SCH ×2 (01:21→08:49)
[2017-07-22 05:32] LABS: Hemoglobin A1C 13.5 % (4.0-6.0)
[2017-07-22 05:55] VITALS: TEMP 97.8
[2017-07-22 06:06] LABS: Glucose,Whole Blood 255 mg/dL (75-99)
[2017-07-22 06:34] LABS: Basophils % (A) 0 %; Eosinophils % (A) 0 %; HCT 44.4 % (39.0-53.0); HGB 14.4 gm/dL (13.0-17.5); Lymphocytes # (A) 2.2 k/uL (1.0-4.8); Lymphocytes % (A) 33 %; MCH 29.4 pg (25.0-35.0); MCHC 32.5 g/dL (31.0-37.0); MCV 90.5 fL (80.0-100.0); Mean Platelet Volume 8.2; Monocytes # (A) 0.3 k/uL (0-1.0); Monocytes % (A) 5 %; Neutrophils % (A) 59 %; Platelet Count 132 k/uL (150-450); RDW 13.6 % (11.5-15.5); WBC 6.7 k/uL (3.8-10.6)
[2017-07-22] MEDS: CARVEDILOL 12.5 MG TAB PO SCH (06:39)
[2017-07-22 06:47] LABS: ALT 29 U/L (21-72); AST 18 U/L (17-59); Albumin 3.1 g/dL (3.5-5.0); Alkaline Phosphatase 58 U/L (38-126); Anion Gap 12 mmol/L; Blood Urea Nitrogen 15 mg/dL (9-20); Calcium 9.9 mg/dL (8.4-10.2); Carbon Dioxide 23 mmol/L (22-30); Chloride 104 mmol/L (98-107); Glucose 271 mg/dL (74-99); Potassium 4.2 mmol/L (3.5-5.1); Sodium 139 mmol/L (137-145); Total Bilirubin 0.4 mg/dL (0.2-1.3); Total Protein 5.8 g/dL (6.3-8.2)
[2017-07-22] MEDS: LISINOPRIL 20 MG TAB PO SCH (08:49)
[2017-07-22] MEDS ORDERED: NICOTINE 21MG/24HR PATCH TRANSDERM SCH (09:00)
[2017-07-22 09:08] VITALS: RESP 16
[2017-07-22] MEDS ORDERED: POTAS-SOD-PHOS 278-164-250 MG 1 EACH PACKET PO SCH (10:45)
[2017-07-22 11:19] LABS: Glucose,Whole Blood 288 mg/dL (75-99)
[2017-07-22 11:38] VITALS: BMI 39.4
--- NOTE | 2017-07-22 11:40 | P.DS ---
Providers Date of admission: 07/21/17 12:20 Attending physician: Mira Bazan MD Primary care physician: Stated None Hospital Course: Final diagnoses at discharge DKA Uncontrolled hypertension Secondary diagnoses Chronic systolic congestive heart failure with left ventricular ejection fraction of 30% currently compensated Type 2 diabetes mellitus Tobacco smoking abuse Obesity Hospital course 52-year-old male with history of CHF with left ventricular ejection fraction of 30%, hypertension, type 2 diabetes mellitus. Patient presented the hospital feeling fatigued, complaining of polydipsia polyuria. Patient admits that he has not been compliant with his diabetic medications as he stopped metformin or years ago and has been watching his diet. However he binged on sugary food and drinks a week ago that's when he presented to the hospital with similar symptoms however he decided to leave the hospital AGAINST MEDICAL ADVICE. However he did not get better over the past few days and decided to come back. He was found to be in DKA and was admitted for further care. Next day he felt better, and Was closed bicarb was normalized. Patient was transitioned safely to subcutaneous insulin, however patient insisted on leaving as he has some custody matters and social issues to attend understanding that the outpatient regimen for his insulin will not be optimal due to hem rushing to leave the hospital however he decided to take the risk. I provided the patient with extensive counseling regarding his diet, how to take the insulin, and how to care for his diabetes including but not limited to annual retinal exam, foot exam, following up with his PCP to do blood work. Patient got some counseling from the dietitian about his diabetes and counting his carbs. The patient showed a lot of interest in these discussions and showed seriousness in controlling in his diet and his diabetes. Patient A1c was 13.5 that's why patient was discharged on insulin he was prescribed long acting insulin and short-acting insulin. Patient was also provided with instructions on how frequent to check his blood sugar levels and went to consider to come back to the hospital when his blood sugars are not controlled. Upon presentation patient had some component of hypercalcemia however resolved after proper hydration. Blood pressure initially was uncontrolled however was controlled F to reach introduction of his medications as he indicated that he ran out of his chronic meds. Patient seen and examined on day of discharge, tolerating by mouth intake denies any chest pain or trouble breathing. Constitutional: vital signs stable, Not in acute distress, pleasant, conversant Lungs: Clear to auscultation bilaterally, clear to percussion, normal respiratory effort no use of accessory muscles Cardiovascular: Regular rate and rhythm, no murmurs, no gallops, no rubs, no peripheral edema Gastrointestinal: Soft, no tenderness to palpation, no palpable hepatosplenomegally, bowel sounds positive Extremities: No digital cyanosis or clubbing, peripheral pulses palpable and equal over bilateral radial arteries and dorsalis pedis artery, no calf muscle tenderness Psych: Alert, oriented to place, person and time, appropriate affect, intact judgment Follow-up with PCP, patient was given referral to Dr. Merchant Prescriptions sent to his preferred pharmacy Extensive education provided. 50 minutes were spent discharging this patient, and more than 50% of the time was spent in counseling the patient and family and in coordinating care. Patient Condition at Discharge: Good Plan - Discharge Summary Discharge Rx Participant: No New Discharge Prescriptions: New RX: Insulin Aspart [NovoLOG Flexpen] 6 unit SQ AC-TID #1 insuln.pen Insulin Detemir [Levemir Flextouch] 30 unit SQ HS #1 insuln.pen RX: Nicotine 21Mg/24Hr Patch [Habitrol] 1 patch TRANSDERM DAILY #14 patch RX: Wzgjl-Qoa-Lacu [id number] mg [Neutra-Phos Packet] 1 each PO TID #3 packet Continue RX: Atorvastatin Calcium [Lipitor] 40 mg PO DAILY #30 tablet RX: Carvedilol [Coreg] 12.5 mg PO BID #60 tablet RX: Furosemide [Lasix] 40 mg PO DAILY #30 tablet RX: Lisinopril [Prinivil] 20 mg PO DAILY #30 tablet Discharge Medication List Insulin Detemir [Levemir Flextouch] 30 unit SQ HS #1 insuln.pen 07/22/17 [Rx] RX: Atorvastatin Calcium [Lipitor] 40 mg PO DAILY #30 tablet 07/22/17 [Rx] RX: Carvedilol [Coreg] 12.5 mg PO BID #60 tablet 07/22/17 [Rx] RX: Furosemide [Lasix] 40 mg PO DAILY #30 tablet 07/22/17 [Rx] RX: Insulin Aspart [NovoLOG Flexpen] 6 unit SQ AC-TID #1 insuln.pen 07/22/17 [Rx ] RX: Lisinopril [Prinivil] 20 mg PO DAILY #30 tablet 07/22/17 [Rx] RX: Nicotine 21Mg/24Hr Patch [Habitrol] 1 patch TRANSDERM DAILY #14 patch [Rx] RX: Vjvol-Ewo-Nwkh [id number] mg [Neutra-Phos Packet] 1 each PO TID #3 packet 07/22/17 [Rx] Follow up Appointment(s)/Referral(s): Cinda Caruso NPC [REFERRING] - 07/24/17 10:30 am Patient Instructions/Handouts: How to Check Your Blood Sugar (DC), Diabetic Ketoacidosis (DC), Foot Care for People with Diabetes (DC), Hypoglycemia in a Person with Diabetes (DC), Diabetic Hyperglycemia (DC) Activity/Diet/Wound Care/Special Instructions: activity as tolerated Discharge Disposition: HOME SELF-CARE
[2017-07-22 11:42] VITALS: BP 133/92; PULSE 81
[2017-07-22] MEDS ORDERED: INSULIN DETEMIR 100 UNIT/ML 10 ML VIAL SQ SCH (21:00)
== END 2017-07-22 13:22 | disposition home or self-care (01) | DRG 638 ==
LOC: EC 10:28 → 6SEL 12:20
PROVIDERS: ADMIT Internal Medicine; ATTEND Internal Medicine
DX: E11.10 Type 2 diabetes mellitus with ketoacidosis without coma (principal); I50.22 Chronic systolic (congestive) heart failure; I11.0 Hypertensive heart disease with heart failure; E83.52 Hypercalcemia; E86.0 Dehydration; F41.9 Anxiety disorder, unspecified; E66.9 Obesity, unspecified; M17.11 Unilateral primary osteoarthritis, right knee; F17.210 Nicotine dependence, cigarettes, uncomplicated; Z71.6 Tobacco abuse counseling; Z79.899 Other long term (current) drug therapy; Z88.1 Allergy status to other antibiotic agents; Z91.11 Patient's noncompliance with dietary regimen; Z91.14 Patient's other noncompliance with medication regimen
CPT/HCPCS: 36415; 80051; 80053; 81003; 82009; 82150; 82565; 82947; 83036; 83690; 84100; 84520; 85025; 96360; 96361; 99284

== ENCOUNTER 2017-08-11 12:21 | Emergency (ER) | payer OTHER ==
[2017-08-11 12:35] LABS: Glucose,Whole Blood 431 mg/dL (75-99)
[2017-08-11] MEDS ORDERED: SODIUM CHLORIDE 0.9% 1,000 ML IV STA ×2 (14:50→16:06)
[2017-08-11] MEDS ORDERED: SODIUM CHLORIDE 0.9% 500 ML IV STA (14:50)
[2017-08-11] MEDS: ONDANSETRON 4 MG/2 ML VIAL IVP STA ×2 (15:10→18:33)
--- NOTE | 2017-08-11 15:22 | ED ---
General Adult HPI - General Chief complaint: Dizziness Stated complaint: low sugar Time Seen by Provider: 08/11/17 14:22 Source: patient, RN notes reviewed, old records reviewed Mode of arrival: wheelchair Limitations: no limitations, language barrier - History of Present Illness Initial comments: 52-year-old male to the ER for evaluation today. Patient states he presents today for dizziness lightheadedness not feeling well. Patient does have diabetes, Insulin for Diabetes. 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 He denied chest pain no headache or shortness of breath. Patient continues to feel dizzy currently. States he feels tired and fatigued. No recent change in medications. No fevers. No nausea vomiting or diarrhea. No recent hospital admissions - Related Data Home Medications Medication Instructions Recorded Confirmed Insulin Aspart [NovoLOG Flexpen] 8 unit SQ AC-TID 08/11/17 08/11/17 Insulin Detemir [Levemir Flextouch] 8 unit SQ HS 08/11/17 08/11/17 Xnaqx-Hfh-Yeje [id number] mg 1 pack PO TID 08/11/17 08/11/17 [Neutra-Phos Packet] Previous Rx's Medication Instructions Recorded Atorvastatin Calcium [Lipitor] 40 mg PO DAILY #30 tablet 07/22/17 Carvedilol [Coreg] 12.5 mg PO BID #60 tablet 07/22/17 Furosemide [Lasix] 40 mg PO DAILY #30 tablet 07/22/17 Lisinopril [Prinivil] 20 mg PO DAILY #30 tablet 07/22/17 Allergies Allergy/AdvReac Type Severity Reaction Status Date / Time amoxicillin Allergy Rash/Hives Verified 08/11/17 13:24 Review of Systems ROS Statement: Those systems with pertinent positive or pertinent negative responses have been documented in the HPI. ROS Other: All systems not noted in ROS Statement are negative. Past Medical History Past Medical History: Heart Failure, Diabetes Mellitus, Hypertension Additional Past Medical History / Comment(s): NIDDM type II diagnosed in 2007/ pt took self off diabetic medications in 2013 because he felt his blood sugars were good because he had been getting normal blood glucose numbers, R knee arthritis, pt states he does not think he has high cholesterol. CHF with a ventricular ejection fraction of 30% History of Any Multi-Drug Resistant Organisms: None Reported Past Surgical History: Heart Catheterization, Orthopedic Surgery Additional Past Surgical History / Comment(s): 02/2017 cardiac cath at [facility]-normal, R knee arthroscopy Past Anesthesia/Blood Transfusion Reactions: No Reported Reaction Past Psychological History: Anxiety Smoking Status: Current every day smoker Past Alcohol Use History: Occasional Past Drug Use History: None Reported - Past Family History Mother Additional Family Medical History / Comment(s): Mother has psychological problems., of ovarian cancer Father History Unknown: Yes General Exam Limitations: no limitations General appearance: alert, in no apparent distress Head exam: Present: atraumatic, normocephalic, normal inspection Eye exam: Present: normal appearance, PERRL, EOMI. Absent: scleral icterus, conjunctival injection, periorbital swelling ENT exam: Present: normal exam, mucous membranes moist Neck exam: Present: normal inspection. Absent: tenderness, meningismus, lymphadenopathy Respiratory exam: Present: normal lung sounds bilaterally. Absent: respiratory distress, wheezes, rales, rhonchi, stridor Cardiovascular Exam: Present: regular rate, normal rhythm, normal heart sounds. Absent: systolic murmur, diastolic murmur, rubs, gallop, clicks GI/Abdominal exam: Present: soft, normal bowel sounds. Absent: distended, tenderness, guarding, rebound, rigid Extremities exam: Present: normal inspection, full ROM, normal capillary refill. Absent: tenderness, pedal edema, joint swelling, calf tenderness Back exam: Present: normal inspection Neurological exam: Present: alert, oriented X3, CN II-XII intact Psychiatric exam: Present: normal affect, normal mood Skin exam: Present: warm, dry, intact, normal color. Absent: rash Course Vital Signs 08/11/17 08/11/17 12:34 14:25 Temperature 98.5 F 98.8 F Pulse Rate 94 83 Respiratory 20 16 Rate Blood Pressure 111/71 137/81 O2 Sat by Pulse 96 97 Oximetry - Reevaluation(s) Reevaluation #1: 08/11/17 16:45 Patient given diabetic education Medical Decision Making - Medical Decision Making T1 male the ER for evaluation of change in blood sugar, not feeling well, dehydration. Patient rehydrated here in the emergency room, blood sugar control the patient can be discharged home - Lab Data Result diagrams: 08/11/17 15:08 05/29/18 15:08 Lab Results 08/11/17 08/11/17 08/11/17 Range/Units 12:34 15:08 15:08 WBC (3.8-10.6) k/uL RBC (4.30-5.90) m/uL Hgb (13.0-17.5) gm/dL Hct (39.0-53.0) % MCV (80.0-100.0) fL MCH (25.0-35.0) pg MCHC (31.0-37.0) g/dL RDW (11.5-15.5) % Plt Count (150-450) k/uL Neutrophils % % Lymphocytes % % Monocytes % % Eosinophils % % Basophils % % Neutrophils # (1.3-7.7) k/uL Lymphocytes # (1.0-4.8) k/uL Monocytes # (0-1.0) k/uL Eosinophils # (0-0.7) k/uL Basophils # (0-0.2) k/uL Sodium 135 L (137-145) mmol/L Potassium 4.3 (3.5-5.1) mmol/L Chloride 95 L (98-107) mmol/L Carbon Dioxide 28 (22-30) mmol/L Anion Gap 12 mmol/L BUN 22 H (9-20) mg/dL Creatinine 1.30 H (0.66-1.25) mg/dL Est GFR (CKD-EPI)AfAm 73 (>60 ml/min/1.73 sqM) Est GFR (CKD-EPI)NonAf 63 (>60 ml/min/1.73 sqM) Glucose 438 H (74-99) mg/dL POC Glucose (mg/dL) 431 H (75-99) mg/dL POC Glu Filler And Trimmer ID Samra Wilson Calcium 10.2 (8.4-10.2) mg/dL Phosphorus 3.5 (2.5-4.5) mg/dL Magnesium 1.7 (1.6-2.3) mg/dL Total Bilirubin 0.7 (0.2-1.3) mg/dL AST 21 (17-59) U/L ALT 36 (21-72) U/L Alkaline Phosphatase 54 (38-126) U/L Total Creatine Kinase (55-170) U/L CK-MB (CK-2) (0.0-2.4) ng/mL CK-MB (CK-2) Rel Index Troponin I (0.000-0.034) ng/mL Total Protein 6.7 (6.3-8.2) g/dL Albumin 3.9 (3.5-5.0) g/dL Urine Color Light Yellow Urine Appearance Clear (Clear) Urine pH 5.5 (5.0-8.0) Ur Specific [place] 1.021 (1.001-1.035) Urine Protein Negative (Negative) Urine Glucose (UA) 4+ H (Negative) Urine Ketones 2+ H (Negative) Urine Blood Negative (Negative) Urine Nitrite Negative (Negative) Urine Bilirubin Negative (Negative) Urine Urobilinogen <2.0 (<2.0) mg/dL Ur Leukocyte Esterase Negative (Negative) Acetone, Qual Positive (Negative) 08/11/17 08/11/17 Range/Units 15:08 15:08 WBC 7.0 (3.8-10.6) k/uL RBC 5.08 (4.30-5.90) m/uL Hgb 14.9 (13.0-17.5) gm/dL Hct 46.8 (39.0-53.0) % MCV 92.0 (80.0-100.0) fL MCH 29.3 (25.0-35.0) pg MCHC 31.9 (31.0-37.0) g/dL RDW 14.0 (11.5-15.5) % Plt Count 121 L (150-450) k/uL Neutrophils % 69 % Lymphocytes % 19 % Monocytes % 8 % Eosinophils % 0 % Basophils % 0 % Neutrophils # 4.9 (1.3-7.7) k/uL Lymphocytes # 1.4 (1.0-4.8) k/uL Monocytes # 0.5 (0-1.0) k/uL Eosinophils # 0.0 (0-0.7) k/uL Basophils # 0.0 (0-0.2) k/uL Sodium (137-145) mmol/L Potassium (3.5-5.1) mmol/L Chloride (98-107) mmol/L Carbon Dioxide (22-30) mmol/L Anion Gap mmol/L BUN (9-20) mg/dL Creatinine (0.66-1.25) mg/dL Est GFR (CKD-EPI)AfAm (>60 ml/min/1.73 sqM) Est GFR (CKD-EPI)NonAf (>60 ml/min/1.73 sqM) Glucose (74-99) mg/dL POC Glucose (mg/dL) (75-99) mg/dL POC Glu Filler And Trimmer ID Calcium (8.4-10.2) mg/dL Phosphorus (2.5-4.5) mg/dL Magnesium (1.6-2.3) mg/dL Total Bilirubin (0.2-1.3) mg/dL AST (17-59) U/L ALT (21-72) U/L Alkaline Phosphatase (38-126) U/L Total Creatine Kinase 172 H (55-170) U/L CK-MB (CK-2) 1.8 (0.0-2.4) ng/mL CK-MB (CK-2) Rel Index 1.0 Troponin I 0.030 (0.000-0.034) ng/mL Total Protein (6.3-8.2) g/dL Albumin (3.5-5.0) g/dL Urine Color Urine Appearance (Clear) Urine pH (5.0-8.0) Ur Specific [place] (1.001-1.035) Urine Protein (Negative) Urine Glucose (UA) (Negative) Urine Ketones (Negative) Urine Blood (Negative) Urine Nitrite (Negative) Urine Bilirubin (Negative) Urine Urobilinogen (<2.0) mg/dL Ur Leukocyte Esterase (Negative) Acetone, Qual (Negative) Disposition Clinical Impression: Dehydration, Hyperglycemia Disposition: HOME SELF-CARE Condition: Good Instructions: Dehydration (ED), Diabetic Hyperglycemia (ED) Is patient prescribed a controlled substance at d/c from ED?: No Referrals: None,Stated [Primary Care Provider] - 1-2 days
[2017-08-11 15:23] LABS: Appearance,Urine Clear (Clear); Bilirubin,Urine Negative (Negative); Blood,Urine Negative (Negative); Color,Urine Light Yellow; Glucose,Urine (UA) 4+ (Negative); Leukocyte Esterase,Urine Negative (Negative); Nitrite,Urine Negative (Negative); PH, Urine 5.5 (5.0-8.0); Protein,Urine Negative (Negative); Specific Gravity,Urine 1.021 (1.001-1.035); Urobilinogen,Urine <2.0 mg/dL (<2.0)
[2017-08-11 15:25] LABS: Basophils % (A) 0 %; Eosinophils % (A) 0 %; HCT 46.8 % (39.0-53.0); HGB 14.9 gm/dL (13.0-17.5); Lymphocytes # (A) 1.4 k/uL (1.0-4.8); Lymphocytes % (A) 19 %; MCH 29.3 pg (25.0-35.0); MCHC 31.9 g/dL (31.0-37.0); Mean Platelet Volume 8.8; Monocytes # (A) 0.5 k/uL (0-1.0); Monocytes % (A) 8 %; Neutrophils # (A) 4.9 k/uL (1.3-7.7); Neutrophils % (A) 69 %; Platelet Count 121 k/uL (150-450); RBC 5.08 m/uL (4.30-5.90)
[2017-08-11 15:33] LABS: Ketones,Urine 2+ (Negative)
[2017-08-11 15:34] LABS: ALT 36 U/L (21-72); AST 21 U/L (17-59); Albumin 3.9 g/dL (3.5-5.0); Alkaline Phosphatase 54 U/L (38-126); Anion Gap 12 mmol/L; Blood Urea Nitrogen 22 mg/dL (9-20); Calcium 10.2 mg/dL (8.4-10.2); Carbon Dioxide 28 mmol/L (22-30); Chloride 95 mmol/L (98-107); Glucose 438 mg/dL (74-99); Magnesium 1.7 mg/dL (1.6-2.3); Phosphorus 3.5 mg/dL (2.5-4.5); Potassium 4.3 mmol/L (3.5-5.1); Sodium 135 mmol/L (137-145); Total Bilirubin 0.7 mg/dL (0.2-1.3); Total Protein 6.7 g/dL (6.3-8.2)
[2017-08-11 15:59] LABS: Creatine Kinase MB 1.8 ng/mL (0.0-2.4); Troponin I 0.03 ng/mL (0.000-0.034)
[2017-08-11] MEDS ORDERED: INSULIN REGULAR 100 UNIT/ML VIAL IV ONE (16:06)
[2017-08-11 17:26] LABS: Glucose,Whole Blood 265 mg/dL (75-99)
[2017-08-11 17:34] VITALS: RESP 18; TEMP 98.4
[2017-08-11 18:33] VITALS: BP 158/100; PULSE 70
== END 2017-08-11 18:31 | disposition home or self-care (01) ==
LOC: EC 12:21
DX: E11.65 Type 2 diabetes mellitus with hyperglycemia (principal); E86.0 Dehydration; F17.200 Nicotine dependence, unspecified, uncomplicated; Z95.818 Presence of other cardiac implants and grafts; Z79.4 Long term (current) use of insulin; Z88.0 Allergy status to penicillin; Z53.20 Procedure and treatment not carried out because of patient's decision for unspecified reasons
CPT/HCPCS: 36415; 80053; 81003; 82009; 82550; 82553; 83735; 84100; 84484; 85025; 87086; 93005; 96360; 96361; 99284

== ENCOUNTER 2017-09-13 14:21 | Emergency (ER) | payer OTHER ==
[2017-09-13] MEDS ORDERED: fentaNYL (PF) 50 MCG/ML 2 ML AMP IVP STA (14:29)
[2017-09-13 14:37] VITALS: RESP 18
[2017-09-13 15:14] LABS: Basophils % (A) 0 %; Eosinophils % (A) 1 %; HCT 43.1 % (39.0-53.0); HGB 13.5 gm/dL (13.0-17.5); Hypochromasia Slight; Lymphocytes # (A) 1.5 k/uL (1.0-4.8); Lymphocytes % (A) 26 %; MCH 29.2 pg (25.0-35.0); MCHC 31.2 g/dL (31.0-37.0); MCV 93.4 fL (80.0-100.0); Mean Platelet Volume 8.8; Monocytes # (A) 0.6 k/uL (0-1.0); Monocytes % (A) 11 %; Neutrophils # (A) 3.3 k/uL (1.3-7.7); Neutrophils % (A) 59 %; Platelet Count 131 k/uL (150-450); RBC 4.61 m/uL (4.30-5.90); RDW 14.3 % (11.5-15.5); WBC 5.7 k/uL (3.8-10.6)
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
[2017-09-13 15:26] LABS: Anion Gap 7 mmol/L; Blood Urea Nitrogen 16 mg/dL (9-20); Carbon Dioxide 24 mmol/L (22-30); Chloride 103 mmol/L (98-107); Potassium 4.6 mmol/L (3.5-5.1); Sodium 134 mmol/L (137-145)
[2017-09-13 15:42] LABS: Glucose 543 mg/dL (74-99)
[2017-09-13] MEDS ORDERED: SODIUM CHLORIDE 0.9% 500 ML IV STA (15:44)
[2017-09-13] MEDS ORDERED: INSULIN REGULAR 100 UNIT/ML VIAL IV ONE (15:46)
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
[2017-09-13 16:53] LABS: Glucose,Whole Blood 301 mg/dL (75-99)
[2017-09-13] MEDS ORDERED: IBUPROFEN 800 MG TAB PO STA (16:58)
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
[2017-09-13 17:46] VITALS: BP 168/118; PULSE 82; TEMP 98.6
== END 2017-09-13 17:47 | disposition home or self-care (01) ==
LOC: EC 14:21
DX: M54.2 Cervicalgia (principal); E11.65 Type 2 diabetes mellitus with hyperglycemia; I11.0 Hypertensive heart disease with heart failure; I50.9 Heart failure, unspecified; F17.200 Nicotine dependence, unspecified, uncomplicated; Z79.4 Long term (current) use of insulin; Z79.899 Other long term (current) drug therapy; Z88.0 Allergy status to penicillin; Z95.818 Presence of other cardiac implants and grafts; V89.2XXA Person injured in unspecified motor-vehicle accident, traffic, initial encounter; Y92.410 Unspecified street and highway as the place of occurrence of the external cause
CPT/HCPCS: 36415; 93005; 80048; 85025; 71045; 72125; 70450; 99285; 96374; 96361 ×2; J3010

== ENCOUNTER 2017-12-01 12:22 | Emergency (ER) | payer OTHER ==
[2017-12-01 12:40] VITALS: BP 165/98; PULSE 82; RESP 16; TEMP 98.7
--- NOTE | 2017-12-01 13:18 | ED ---
URI HPI - General Chief Complaint: Upper Respiratory Infection Stated Complaint: CONGESTION Time Seen by Provider: 12/01/17 13:01 Source: patient, RN notes reviewed, old records reviewed Mode of arrival: ambulatory Limitations: no limitations - History of Present Illness Initial Comments: Patient is a 52-year-old male presents emergency department today with chief complaint of sinus congestion. He reports for the past week he's had a runny nose, watering eyes and pain within the sinuses. He reports that a mild cough. He denies any shortness of breath or chest pain. Patient reports that he has been using a nasal spray with little relief of the symptoms. - Related Data Home Medications Medication Instructions Recorded Confirmed Insulin Aspart [NovoLOG Flexpen] 8 unit SQ AC-TID 08/11/17 08/11/17 Insulin Detemir [Levemir Flextouch] 8 unit SQ HS 08/11/17 08/11/17 Kucpz-Rvt-Fiui 278-164-250 mg 1 pack PO TID 08/11/17 08/11/17 [Neutra-Phos Packet] Previous Rx's Medication Instructions Recorded Atorvastatin Calcium [Lipitor] 40 mg PO DAILY #30 tablet 07/22/17 Carvedilol [Coreg] 12.5 mg PO BID #60 tablet 07/22/17 Furosemide [Lasix] 40 mg PO DAILY #30 tablet 07/22/17 Lisinopril [Prinivil] 20 mg PO DAILY #30 tablet 07/22/17 Acetaminophen [Tylenol] 1,000 mg PO Q4-6H PRN #24 tab 09/13/17 Ibuprofen [Motrin] 600 mg PO Q6HR PRN #24 tab 09/13/17 Levofloxacin [Levaquin] 750 mg PO DAILY #5 tab 12/01/17 Loratadine-Pseudoeph 5-120 mg 1 each PO Q12HR #20 tab 12/01/17 [Claritin-D 12 HR] diphenhydrAMINE [Benadryl] 25 mg PO HS PRN #10 capsule 12/01/17 Allergies Allergy/AdvReac Type Severity Reaction Status Date / Time amoxicillin Allergy Rash/Hives Verified 12/01/17 12:40 Review of Systems ROS Statement: Those systems with pertinent positive or pertinent negative responses have been documented in the HPI. ROS Other: All systems not noted in ROS Statement are negative. Past Medical History Past Medical History: Heart Failure, Diabetes Mellitus, Hypertension Additional Past Medical History / Comment(s): NIDDM type II diagnosed in 2007/ pt took self off diabetic medications in 2013 because he felt his blood sugars were good because he had been getting normal blood glucose numbers, R knee arthritis, pt states he does not think he has high cholesterol. CHF with a ventricular ejection fraction of 30% History of Any Multi-Drug Resistant Organisms: None Reported Past Surgical History: Heart Catheterization, Orthopedic Surgery Additional Past Surgical History / Comment(s): 02/2017 cardiac cath at [facility]-normal, R knee arthroscopy Past Anesthesia/Blood Transfusion Reactions: No Reported Reaction Past Psychological History: Anxiety Smoking Status: Current every day smoker Past Alcohol Use History: Occasional Past Drug Use History: None Reported - Past Family History Mother Additional Family Medical History / Comment(s): Mother has psychological problems., of ovarian cancer Father History Unknown: Yes General Exam - General Exam Comments Initial Comments: 52-year-old male. Alert and oriented. No significant distress. Limitations: no limitations General appearance: alert Head exam: Present: atraumatic Eye exam: Present: normal appearance ENT exam: Present: normal exam, mucous membranes moist, other (Patient has erythematous TMs. Patient is tender over her bilateral maxillary sinuses. Patient has purulent nasal drainage.) Neck exam: Present: normal inspection. Absent: tenderness, meningismus, lymphadenopathy Respiratory exam: Present: normal lung sounds bilaterally. Absent: respiratory distress, wheezes, rales, rhonchi, stridor Cardiovascular Exam: Present: regular rate, normal rhythm, normal heart sounds. Absent: systolic murmur, diastolic murmur, rubs, gallop, clicks Extremities exam: Present: normal inspection, full ROM, normal capillary refill. Absent: tenderness, pedal edema, joint swelling, calf tenderness Back exam: Present: normal inspection Neurological exam: Present: alert, oriented X3, CN II-XII intact Course Vital Signs 12/01/17 12:35 Temperature 98.7 F Pulse Rate 82 Respiratory 16 Rate Blood Pressure 165/98 O2 Sat by Pulse 99 Oximetry Medical Decision Making - Medical Decision Making 52-year-old male presents to the emergency department today with chief complaint of sinus congestion. Patient has significant rhinorrhea with purulent drainage. He is quite tender with exercise. He's been having symptoms for a week. Patient is likely suffering from sinus infection. Discussed putting the Patient antibiotic. As best using [id number] decongestants as well. Patient agrees to treatment plan will comply. Return parameters were discussed. Disposition Clinical Impression: Sinusitis Disposition: HOME SELF-CARE Condition: Good Instructions: Upper Respiratory Infection (ED) Additional Instructions: Patient has follow-up with primary care physician. Return to the emergency department if any alarming signs or symptoms occur. Prescriptions: diphenhydrAMINE [Benadryl] 25 mg PO HS PRN #10 capsule PRN Reason: Congestion Levofloxacin [Levaquin] 750 mg PO DAILY #5 tab Loratadine-Pseudoeph 5-120 mg [Claritin-D 12 HR] 1 each PO Q12HR #20 tab Is patient prescribed a controlled substance at d/c from ED?: No Referrals: Brenda Berumen MD [Primary Care Provider] - 1-2 days Time of Disposition: 13:15
== END 2017-12-01 13:23 | disposition home or self-care (01) ==
LOC: EC 12:22
DX: J32.9 Chronic sinusitis, unspecified (principal); I11.0 Hypertensive heart disease with heart failure; I50.9 Heart failure, unspecified; E11.9 Type 2 diabetes mellitus without complications; F17.200 Nicotine dependence, unspecified, uncomplicated; Z79.4 Long term (current) use of insulin; Z79.899 Other long term (current) drug therapy; Z88.0 Allergy status to penicillin; Z95.818 Presence of other cardiac implants and grafts
CPT/HCPCS: 99283

== ENCOUNTER 2018-07-05 18:11 | Observation (INO) | payer OTHER ==
[2018-07-05 18:59] LABS: Glucose,Whole Blood 370 mg/dL (75-99)
[2018-07-05] MEDS ORDERED: SODIUM CHLORIDE 0.9% 1,000 ML IV ONE ×2 (19:39→20:52)
--- NOTE | 2018-07-05 19:45 | ED ---
Recheck HPI - General Chief Complaint: Recheck/Abnormal Lab/Rx Stated Complaint: hypertension, hyperglycemia Time Seen by Provider: 07/05/18 19:26 Source: patient Mode of arrival: ambulatory Limitations: no limitations - History of Present Illness Initial Comments: 53-year-old male patient presents to the emergency department today for evaluation of elevated blood pressure and blood sugar. Patient states he is out of his medications for both these conditions for quite some time. States that today he was feeling dizzy, weak, and shaky. Patient states he feels unwell. Patient states that his reported his breath smelled like fingernail maltese remover. Patient denies any chest pain, shortness of breath, abdominal pain, nausea, or vomiting. Denies any difficulty with urination or bowel movements. States he is eating and drinking without difficulty. Patient denies any headache, blurred vision, double vision, numbness, tingling, or focal weakness to the extremities. Patient denies any recent rash, fever, chills, diarrhea, constipation, back pain, numbness, tingling, dizziness, weakness, hematuria, dysuria, urinary urgency, urinary frequency, or any other complaints. - Related Data Home Medications Medication Instructions Recorded Confirmed No Known Home Medications 07/05/18 07/05/18 Allergies Allergy/AdvReac Type Severity Reaction Status Date / Time amoxicillin Allergy Rash/Hives Verified 07/05/18 19:19 Review of Systems ROS Statement: Those systems with pertinent positive or pertinent negative responses have been documented in the HPI. ROS Other: All systems not noted in ROS Statement are negative. Past Medical History Past Medical History: Heart Failure, Diabetes Mellitus, Hypertension Additional Past Medical History / Comment(s): NIDDM type II diagnosed in 2007/pt took self off diabetic medications in 2013 because he felt his blood sugars were good because he had been getting normal blood glucose numbers, R knee arthritis, pt states he does not think he has high cholesterol. CHF with a ventricular ejection fraction of 30% History of Any Multi-Drug Resistant Organisms: None Reported Past Surgical History: Heart Catheterization, Orthopedic Surgery Additional Past Surgical History / Comment(s): 02/2017 cardiac cath at [facility]-normal, R knee arthroscopy Past Anesthesia/Blood Transfusion Reactions: No Reported Reaction Past Psychological History: Anxiety Smoking Status: Current every day smoker Past Alcohol Use History: Occasional Past Drug Use History: None Reported - Past Family History Mother Additional Family Medical History / Comment(s): Mother has psychological problems., of ovarian cancer Father History Unknown: Yes General Exam Limitations: no limitations General appearance: alert, in no apparent distress, other (This is a well- developed, well-nourished adult male patient in no acute distress. Vital signs upon presentation are temperature 98.7F, pulse 104, respirations 18, blood pressure 152/107, pulse ox 97% on room air.) Eye exam: Present: normal appearance, PERRL, EOMI. Absent: scleral icterus, conjunctival injection, periorbital swelling ENT exam: Present: normal exam, normal oropharynx, mucous membranes moist Respiratory exam: Present: normal lung sounds bilaterally. Absent: respiratory distress, wheezes, rales, rhonchi, stridor Cardiovascular Exam: Present: regular rate, normal rhythm, normal heart sounds. Absent: systolic murmur, diastolic murmur, rubs, gallop, clicks GI/Abdominal exam: Present: soft, normal bowel sounds. Absent: distended, tenderness, guarding, rebound, rigid Neurological exam: Present: alert, oriented X3, CN II-XII intact Psychiatric exam: Present: normal affect, normal mood Skin exam: Present: warm, dry, intact, normal color. Absent: rash Course Vital Signs 07/05/18 07/05/18 07/05/18 18:43 20:51 22:20 Temperature 98.7 F Pulse Rate 104 H 99 93 Respiratory 18 18 18 Rate Blood Pressure 152/107 160/80 162/111 O2 Sat by Pulse 97 99 98 Oximetry 07/05/18 23:02 Temperature Pulse Rate 89 Respiratory 18 Rate Blood Pressure 158/108 O2 Sat by Pulse 98 Oximetry Medical Decision Making - Medical Decision Making 53-year-old male patient presented to the emergency department today with a chief complaint of feeling weak and shaky. The patient has not been taking his hypertension or hyperglycemic medications for the last few months. Physical examination was relatively unremarkable. Lungs clear to auscultation with good air movement. Abdomen soft and nontender. Labs reviewed and did reveal elevated blood sugar, anion gap of 16, and positive acetone. Patient's troponin was also elevated at 0.055. Patient does deny having any chest pain or shortness of breath today however there were EKG changes so we will admit patient to the hospital for cardiology evaluation and repeat troponins. We also attempted to get his blood sugar under control as well as his high blood pressure. Did discuss findings, results, plan with the patient he is agreeable. Did discuss results with my attending physician. - Lab Data Result diagrams: 07/05/18 19:48 07/05/18 19:48 Lab Results 07/05/18 07/05/18 07/05/18 Range/Units 18:45 19:48 19:48 WBC 7.6 (3.8-10.6) k/uL RBC 5.35 (4.30-5.90) m/uL Hgb 15.7 (13.0-17.5) gm/dL Hct 48.9 (39.0-53.0) % MCV 91.2 (80.0-100.0) fL MCH 29.3 (25.0-35.0) pg MCHC 32.2 (31.0-37.0) g/dL RDW 14.4 (11.5-15.5) % Plt Count 140 L (150-450) k/uL Neutrophils % 66 % Lymphocytes % 24 % Monocytes % 6 % Eosinophils % 1 % Basophils % 0 % Neutrophils # 5.0 (1.3-7.7) k/uL Lymphocytes # 1.8 (1.0-4.8) k/uL Monocytes # 0.5 (0-1.0) k/uL Eosinophils # 0.1 (0-0.7) k/uL Basophils # 0.0 (0-0.2) k/uL PT (9.0-12.0) sec INR (<1.2) APTT (22.0-30.0) sec Sodium 137 (137-145) mmol/L Potassium 4.3 (3.5-5.1) mmol/L Chloride 102 (98-107) mmol/L Carbon Dioxide 19 L (22-30) mmol/L Anion Gap 16 mmol/L BUN 12 (9-20) mg/dL Creatinine 0.71 (0.66-1.25) mg/dL Est GFR (CKD-EPI)AfAm >90 (>60 ml/min/1.73 sqM) Est GFR (CKD-EPI)NonAf >90 (>60 ml/min/1.73 sqM) Glucose 347 H (74-99) mg/dL POC Glucose (mg/dL) 370 H (75-99) mg/dL POC Glu Supervisor Cytology ID Alem Escalante Calcium 11.7 H (8.4-10.2) mg/dL Total Bilirubin 0.8 (0.2-1.3) mg/dL AST 18 (17-59) U/L ALT 26 (21-72) U/L Alkaline Phosphatase 82 (38-126) U/L Troponin I (0.000-0.034) ng/mL Total Protein 7.9 (6.3-8.2) g/dL Albumin 4.7 (3.5-5.0) g/dL Urine Color Urine Appearance (Clear) Urine pH (5.0-8.0) Ur Specific [place] (1.001-1.035) Urine Protein (Negative) Urine Glucose (UA) (Negative) Urine Ketones (Negative) Urine Blood (Negative) Urine Nitrite (Negative) Urine Bilirubin (Negative) Urine Urobilinogen (<2.0) mg/dL Ur Leukocyte Esterase (Negative) Acetone, Qual Positive (Negative) 07/05/18 07/05/18 07/05/18 Range/Units 19:48 19:48 21:14 WBC (3.8-10.6) k/uL RBC (4.30-5.90) m/uL Hgb (13.0-17.5) gm/dL Hct (39.0-53.0) % MCV (80.0-100.0) fL MCH (25.0-35.0) pg MCHC (31.0-37.0) g/dL RDW (11.5-15.5) % Plt Count (150-450) k/uL Neutrophils % % Lymphocytes % % Monocytes % % Eosinophils % % Basophils % % Neutrophils # (1.3-7.7) k/uL Lymphocytes # (1.0-4.8) k/uL Monocytes # (0-1.0) k/uL Eosinophils # (0-0.7) k/uL Basophils # (0-0.2) k/uL PT 9.5 (9.0-12.0) sec INR 0.9 (<1.2) APTT 21.7 L (22.0-30.0) sec Sodium (137-145) mmol/L Potassium (3.5-5.1) mmol/L Chloride (98-107) mmol/L Carbon Dioxide (22-30) mmol/L Anion Gap mmol/L BUN (9-20) mg/dL Creatinine (0.66-1.25) mg/dL Est GFR (CKD-EPI)AfAm (>60 ml/min/1.73 sqM) Est GFR (CKD-EPI)NonAf (>60 ml/min/1.73 sqM) Glucose (74-99) mg/dL POC Glucose (mg/dL) (75-99) mg/dL POC Glu Supervisor Cytology ID Calcium (8.4-10.2) mg/dL Total Bilirubin (0.2-1.3) mg/dL AST (17-59) U/L ALT (21-72) U/L Alkaline Phosphatase (38-126) U/L Troponin I 0.055 H* (0.000-0.034) ng/mL Total Protein (6.3-8.2) g/dL Albumin (3.5-5.0) g/dL Urine Color Light Yellow Urine Appearance Clear (Clear) Urine pH 5.5 (5.0-8.0) Ur Specific [place] 1.041 H (1.001-1.035) Urine Protein Trace H (Negative) Urine Glucose (UA) 4+ H (Negative) Urine Ketones 4+ H (Negative) Urine Blood Negative (Negative) Urine Nitrite Negative (Negative) Urine Bilirubin Negative (Negative) Urine Urobilinogen <2.0 (<2.0) mg/dL Ur Leukocyte Esterase Negative (Negative) Acetone, Qual (Negative) 07/05/18 07/05/18 Range/Units 21:51 22:44 WBC (3.8-10.6) k/uL RBC (4.30-5.90) m/uL Hgb (13.0-17.5) gm/dL Hct (39.0-53.0) % MCV (80.0-100.0) fL MCH (25.0-35.0) pg MCHC (31.0-37.0) g/dL RDW (11.5-15.5) % Plt Count (150-450) k/uL Neutrophils % % Lymphocytes % % Monocytes % % Eosinophils % % Basophils % % Neutrophils # (1.3-7.7) k/uL Lymphocytes # (1.0-4.8) k/uL Monocytes # (0-1.0) k/uL Eosinophils # (0-0.7) k/uL Basophils # (0-0.2) k/uL PT (9.0-12.0) sec INR (<1.2) APTT (22.0-30.0) sec Sodium (137-145) mmol/L Potassium (3.5-5.1) mmol/L Chloride (98-107) mmol/L Carbon Dioxide (22-30) mmol/L Anion Gap mmol/L BUN (9-20) mg/dL Creatinine (0.66-1.25) mg/dL Est GFR (CKD-EPI)AfAm (>60 ml/min/1.73 sqM) Est GFR (CKD-EPI)NonAf (>60 ml/min/1.73 sqM) Glucose (74-99) mg/dL POC Glucose (mg/dL) 251 H 224 H (75-99) mg/dL POC Glu Supervisor Cytology ID Watt, Carmen Watt, Carmen Calcium (8.4-10.2) mg/dL Total Bilirubin (0.2-1.3) mg/dL AST (17-59) U/L ALT (21-72) U/L Alkaline Phosphatase (38-126) U/L Troponin I (0.000-0.034) ng/mL Total Protein (6.3-8.2) g/dL Albumin (3.5-5.0) g/dL Urine Color Urine Appearance (Clear) Urine pH (5.0-8.0) Ur Specific [place] (1.001-1.035) Urine Protein (Negative) Urine Glucose (UA) (Negative) Urine Ketones (Negative) Urine Blood (Negative) Urine Nitrite (Negative) Urine Bilirubin (Negative) Urine Urobilinogen (<2.0) mg/dL Ur Leukocyte Esterase (Negative) Acetone, Qual (Negative) - EKG Data -: EKG Interpreted by Fl EKG Comments: EKG obtained at 2045 shows normal sinus rhythm with biatrial enlargement, there is evidence of ST elevation in V2 and V3. She is 100, NJ interval 192, QRS duration 108, QT 358, QTC 461. No evidence of ST elevation or depression. - Radiology Data Radiology results: report reviewed, image reviewed Two-view x-ray of the chest is obtained. Report was reviewed in its entirety. Impression by Dr. Dupree shows cardiomegaly with no active cardiopulmonary disease. No change. Disposition Clinical Impression: DKA (diabetic ketoacidoses), Elevated troponin Disposition: ADMITTED IP TO THIS [facility] Condition: Serious Referrals: Brenda Berumen MD [Primary Care Provider] - 1-2 days Decision to Admit Reason: Admit from EC Decision Date: 07/05/18 Decision Time: 23:28
[2018-07-05 19:56] LABS: Basophils % (A) 0 %; Eosinophils # (A) 0.1 k/uL (0-0.7); Eosinophils % (A) 1 %; HCT 48.9 % (39.0-53.0); HGB 15.7 gm/dL (13.0-17.5); Lymphocytes # (A) 1.8 k/uL (1.0-4.8); Lymphocytes % (A) 24 %; MCH 29.3 pg (25.0-35.0); MCHC 32.2 g/dL (31.0-37.0); MCV 91.2 fL (80.0-100.0); Mean Platelet Volume 8.7; Monocytes # (A) 0.5 k/uL (0-1.0); Monocytes % (A) 6 %; Neutrophils % (A) 66 %; Platelet Count 140 k/uL (150-450); RBC 5.35 m/uL (4.30-5.90); RDW 14.4 % (11.5-15.5); WBC 7.6 k/uL (3.8-10.6)
[2018-07-05 20:05] LABS: ALT 26 U/L (21-72); AST 18 U/L (17-59); Albumin 4.7 g/dL (3.5-5.0); Alkaline Phosphatase 82 U/L (38-126); Anion Gap 16 mmol/L; Blood Urea Nitrogen 12 mg/dL (9-20); Calcium 11.7 mg/dL (8.4-10.2); Carbon Dioxide 19 mmol/L (22-30); Chloride 102 mmol/L (98-107); Glucose 347 mg/dL (74-99); Potassium 4.3 mmol/L (3.5-5.1); Sodium 137 mmol/L (137-145); Total Bilirubin 0.8 mg/dL (0.2-1.3); Total Protein 7.9 g/dL (6.3-8.2)
[2018-07-05 20:14] LABS: INR 0.9 (<1.2); Prothrombin Time 9.5 sec (9.0-12.0)
[2018-07-05 20:16] LABS: Partial Thromboplastin Time 21.7 sec (22.0-30.0)
[2018-07-05] MEDS ORDERED: INSULIN ASPART (NovoLOG) 100 UNIT/ML VIAL SQ STA (20:51)
[2018-07-05] MEDS ORDERED: ASPIRIN 325 MG TAB PO STA (21:14)
[2018-07-05 21:26] LABS: Appearance,Urine Clear (Clear); Bilirubin,Urine Negative (Negative); Blood,Urine Negative (Negative); Color,Urine Light Yellow; Glucose,Urine (UA) 4+ (Negative); Leukocyte Esterase,Urine Negative (Negative); Nitrite,Urine Negative (Negative); PH, Urine 5.5 (5.0-8.0); Protein,Urine Trace (Negative); Specific Gravity,Urine 1.041 (1.001-1.035); Urobilinogen,Urine <2.0 mg/dL (<2.0)
--- NOTE | 2018-07-05 21:28 | XR ---
EXAMINATION TYPE: XR chest 2V DATE OF EXAM: 07/05/2018 COMPARISON: 09/13/2017 HISTORY: Hypertension TECHNIQUE: Frontal and lateral views of the chest are obtained. FINDINGS: Heart is enlarged. There is no heart failure. Lungs are clear of infiltrate. There are brendon st leads. Bony thorax is intact. IMPRESSION: Cardiomegaly. No active cardiopulmonary disease. No change.
[2018-07-05 21:31] LABS: Ketones,Urine 4+ (Negative)
[2018-07-05 21:53] LABS: Glucose,Whole Blood 251 mg/dL (75-99)
[2018-07-05] MEDS ORDERED: ENALAPRILAT 1.25 MG/ML 1 ML VIAL IVP STA (22:22)
[2018-07-05] MEDS ORDERED: NITROGLYCERIN SL TABS 0.4 MG TAB SUBLINGUAL PRN (22:36)
[2018-07-05] MEDS ORDERED: HEPARIN SODIUM,PORCINE 5,000 UNIT/ML 1 ML VIAL IV ONE (22:36)
[2018-07-05] MEDS ORDERED: HEPARIN SOD,PORK IN 0.45% NACL 25,000 UNIT in 0.45% NACL 1 250ML.BAG IV SCH (22:45)
[2018-07-05 23:11] LABS: Glucose,Whole Blood 224 mg/dL (75-99)
[2018-07-06 06:01] LABS: Glucose,Whole Blood 223 mg/dL (75-99)
[2018-07-06] MEDS: INSULIN ASPART (NovoLOG) 100 UNIT/ML VIAL SQ SCH ×4 (07:10→21:38)
[2018-07-06 07:48] LABS: Cholesterol 184 mg/dL (<200); HDL Cholesterol 46 mg/dL (40-60); LDL Cholesterol,Calculated 111 mg/dL (0-99); Triglycerides 136 mg/dL (<150)
[2018-07-06] MEDS: METOPROLOL TARTRATE 25 MG TAB PO SCH ×2 (09:01→20:46)
[2018-07-06] MEDS: ASPIRIN 325 MG TAB PO SCH (09:01)
--- NOTE | 2018-07-06 09:34 | P.HPIM ---
History of Present Illness this is a pleasant 53 yo M with pmh of congestive heart failure with ejection fraction of 30%, coronary artery disease status post cardiac cath. , diabetes mellitus , hypertension , he is a patient of Dr. Jorge. Patient stating that he was not feeling right for about 2 weeks, amanda feeling lightheadedness and he was about to fall at one time. It is checked his sugar was high in the emergency room was like 370 andhigh blood pressure. However patient denies chest pain or discomfort. No abdominal pain. No nausea vomiting. No change in urine or bowel habits. No dyspnea. No fever. No coughing. on admission, Vitas looks stable.labs reviewed, CBC and BMP were unremarkable. Liver enzymes were not elevated. Patient has high troponin 0.05 and 0.06. Urine Was 16, sugar was running to 224-370 acitone was positive. EKG showing normal sinus rhythm at 100 bpm. Chest x-ray:no active process per Radiologist report. Patient was started on aspirin and IV fluids and emergency room. Review of Systems CONSTITUTIONAL: No fever, no malaise, no fatigue. HEENT: No recent visual problems or hearing problems. Denied any sore throat. CARDIOVASCULAR: No orthopnea, PND, no palpitations, no syncope. PULMONARY: No shortness of breath, no cough, no hemoptysis. GASTROINTESTINAL: No diarrhea, no nausea, no vomiting, no abdominal pain. Normoactive bowel sounds. NEUROLOGICAL: No headaches, no weakness, no numbness. HEMATOLOGICAL: Denies any bleeding or petechiae. GENITOURINARY: Denies any burning micturition, frequency, or urgency. MUSCULOSKELETAL/RHEUMATOLOGICAL: Denies any joint pain, swelling, or any muscle pain. ENDOCRINE: Denies any polyuria or polydipsia. Past Medical History Past Medical History: Chest Pain / Angina, Heart Failure, Diabetes Mellitus, Hypertension Additional Past Medical History / Comment(s): NIDDM type II diagnosed in 2007/pt took self off diabetic medications in 2013 because he felt his blood sugars were good because he had been getting normal blood glucose numbers, R knee arthritis, CHF with a ventricular ejection fraction of 30% History of Any Multi-Drug Resistant Organisms: None Reported Past Surgical History: Heart Catheterization, Orthopedic Surgery Additional Past Surgical History / Comment(s): 02/2017 cardiac cath at [facility]-normal, R knee arthroscopy Past Anesthesia/Blood Transfusion Reactions: No Reported Reaction Smoking Status: Current every day smoker - Past Family History Mother Family Medical History: Cancer Additional Family Medical History / Comment(s): Mother has psychological problems., of ovarian cancer Father History Unknown: Yes Medications and Allergies Home Medications Medication Instructions Recorded Confirmed Type No Known Home Medications 07/05/18 07/05/18 History Allergies Allergy/AdvReac Type Severity Reaction Status Date / Time amoxicillin Allergy Rash/Hives Verified 07/05/18 19:19 Physical Exam Vitals: Vital Signs Temp Pulse Pulse Resp BP BP Pulse Ox 07/06/18 04:10 97.9 F 98 17 118/72 97 07/06/18 00:45 98 17 07/06/18 00:40 97.5 F L 98 17 144/89 96 07/06/18 00:33 98.2 F 100 18 136/103 100 07/05/18 23:02 89 18 158/108 98 07/05/18 22:20 93 18 162/111 98 07/05/18 20:51 99 18 160/80 99 07/05/18 18:43 98.7 F 104 H 18 152/107 97 Intake and Output 07/05/18 07/06/18 07/06/18 22:59 06:59 14:59 Intake Total 0 Output Total 200 Balance -200 Intake: Oral 0 Output: Urine 200 Other: Voiding Method Urinal # Voids 1 Weight 118.841 kg 114 kg GENERAL: The patient is alert and oriented x3, not in any acute distress. Well developed, well nourished. HEENT: Pupils are round and equally reacting to light. EOMI. No scleral icterus. No conjunctival pallor. Normocephalic, atraumatic. No pharyngeal erythema. No thyromegaly. CARDIOVASCULAR: S1 and S2 present. No murmurs, rubs, or gallops. PULMONARY: Chest is clear to auscultation, no wheezing or crackles. ABDOMEN: Soft, nontender, nondistended, normoactive bowel sounds. No palpable organomegaly. MUSCULOSKELETAL: No joint swelling or deformity. EXTREMITIES: No cyanosis, clubbing, or pedal edema. NEUROLOGICAL: Gross neurological examination did not reveal any focal deficits. SKIN: No rashes. Results CBC & Chem 7: 07/05/18 19:48 07/05/18 19:48 Labs: Abnormal Lab Results - Last 24 Hours (Table) 07/05/18 07/05/18 07/05/18 Range/Units 18:45 19:48 19:48 Plt Count 140 L (150-450) k/uL APTT (22.0-30.0) sec Carbon Dioxide 19 L (22-30) mmol/L Glucose 347 H (74-99) mg/dL POC Glucose (mg/dL) 370 H (75-99) mg/dL Calcium 11.7 H (8.4-10.2) mg/dL Troponin I (0.000-0.034) ng/mL LDL Cholesterol, Calc (0-99) mg/dL Ur Specific [place] (1.001-1.035) Urine Protein (Negative) Urine Glucose (UA) (Negative) Urine Ketones (Negative) 07/05/18 07/05/18 07/05/18 Range/Units 19:48 19:48 21:14 Plt Count (150-450) k/uL APTT 21.7 L (22.0-30.0) sec Carbon Dioxide (22-30) mmol/L Glucose (74-99) mg/dL POC Glucose (mg/dL) (75-99) mg/dL Calcium (8.4-10.2) mg/dL Troponin I 0.055 H* (0.000-0.034) ng/mL LDL Cholesterol, Calc (0-99) mg/dL Ur Specific [place] 1.041 H (1.001-1.035) Urine Protein Trace H (Negative) Urine Glucose (UA) 4+ H (Negative) Urine Ketones 4+ H (Negative) 07/05/18 07/05/18 07/06/18 Range/Units 21:51 22:44 01:54 Plt Count (150-450) k/uL APTT (22.0-30.0) sec Carbon Dioxide (22-30) mmol/L Glucose (74-99) mg/dL POC Glucose (mg/dL) 251 H 224 H (75-99) mg/dL Calcium (8.4-10.2) mg/dL Troponin I 0.069 H* (0.000-0.034) ng/mL LDL Cholesterol, Calc (0-99) mg/dL Ur Specific [place] (1.001-1.035) Urine Protein (Negative) Urine Glucose (UA) (Negative) Urine Ketones (Negative) 07/06/18 07/06/18 07/06/18 Range/Units 05:58 06:57 06:57 Plt Count (150-450) k/uL APTT (22.0-30.0) sec Carbon Dioxide (22-30) mmol/L Glucose (74-99) mg/dL POC Glucose (mg/dL) 223 H (75-99) mg/dL Calcium (8.4-10.2) mg/dL Troponin I 0.068 H* (0.000-0.034) ng/mL LDL Cholesterol, Calc 111 H (0-99) mg/dL Ur Specific [place] (1.001-1.035) Urine Protein (Negative) Urine Glucose (UA) (Negative) Urine Ketones (Negative) Thrombosis Risk Factor Assmnt - Choose All That Apply Any of the Below Risk Factors Present?: Yes Each Factor Represents 1 point: Age 41-60 years, Obesity (BMI >25) Other Risk Factors: No Other congenital or acquired thrombophilia - If yes, enter type in comment: No Thrombosis Risk Factor Assessment Total Risk Factor Score: 2 Thrombosis Risk Factor Assessment Level: Low Risk Assessment and Plan Assessment: Elevated troponins, rule out cardiology causes. Elevated sugar with elements of diabetic ketoacidosis History of diabetes mellitus, type II History of coronary artery disease status post cardiac cath History of congestive heart failure with ejection fraction of 30% Hypertension Plan: this is a pleasant 53 years old male who presents because of hyperglycemia, DKA and elevated troponins. Cardiology be consulted. continue with aspirin. Continue with IV hydration and insulin therapy. Monitor sugar. Labs and medication were reviewed.. Continue same treatment. Continue with symptomatic treatment. Resume home medication. Monitor lytes and vitals. DVT and GI prophylaxis. Further recommendations of the clinical course of the patient DVT prophylaxis: Subcutaneous heparin GI Prophylaxis: Pepcid Prognosis is guarded
--- NOTE | 2018-07-06 10:02 | CONS ---
CONSULTATION CHIEF COMPLAINT: Elevated troponins. This is a 53-year-old gentleman with history of diabetes who is noncompliant with his therapy, presented to hospital with elevated blood sugars and he had been out of his medications for some time. Came in feeling dizzy, weak, shaky and unwell. The patient did not have any chest pain, shortness of breath, abdominal pain, nausea, vomiting. He is eating and drinking without difficulty however, and did not have any focal neurological symptoms. He was found to have diabetic ketoacidosis and is admitted to hospital for the same and is being treated for the same. The patient tells me that he had a cardiac catheterization in 2017 and was told that it was normal. He also narrates that he has severe LV dysfunction. I do not have any documentation of this. On this admission, he had troponins done and they have come back mildly elevated, but with no definite pattern to it. It is at 0.05, 0.06 and 0.06. His creatinine is normal. EKG shows sinus rhythm without significant ST-T wave changes. PAST MEDICAL HISTORY: Past medical history is significant for diabetes and cardiomyopathy. MEDICATIONS: None. ALLERGIES: Allergic to AMOXICILLIN. FAMILY HISTORY: Family history is negative for premature coronary artery disease. SOCIAL HISTORY AND REVIEW OF SYSTEMS: I am unable to obtain from the patient who is quite sleepy, probably did not sleep well last night. We will revisit this issue later. PHYSICAL EXAMINATION: On exam, comfortable at rest. Vital signs are stable. There is no jugular venous distention. Carotid upstroke is normal. There is no bruit. Chest exam reveals good air entry bilaterally. Heart exam reveals first and second heart sounds. No gallop. No murmur. Abdomen is soft. Examination of the extremities did not reveal any edema. Peripheral pulses are felt. LABS: Labs show that the troponin is mildly elevated. Creatinine is normal. Hemoglobin is normal. EKG does not reveal acute ischemic changes. ASSESSMENT: 1. Troponin elevation of unclear clinical significance. 2. Diabetic ketoacidosis. 3. Uncontrolled hypertension. PLAN: I will continue the metoprolol, start him on lisinopril 5 mg daily. Please do not give him p.r.n. basis Vasotec. I will stop the IV heparin as I am not convinced that this represents acute myocardial ischemia. I will obtain a 2-D echo. I will obtain the cath report. If he had normal coronaries in 2017, I do not believe he requires further testing at this time. Once the DKA resolves, we can consider an outpatient stress test if we have to. JACK / J CARLOS: [id number] /
[2018-07-06 11:31] LABS: Glucose,Whole Blood 317 mg/dL (75-99)
[2018-07-06 11:53] VITALS: BMI 32.2
[2018-07-06] MEDS: ENALAPRILAT 1.25 MG/ML 1 ML VIAL IVP PRN (12:40)
[2018-07-06] MEDS: HEPARIN SODIUM,PORCINE 5,000 UNIT/ML 1 ML VIAL SQ SCH ×2 (12:41→20:46)
--- NOTE | 2018-07-06 13:05 | ECHOF ---
Referral Reason:ekg changes MEASUREMENTS -------- HEIGHT: 182.9 cm WEIGHT: 113.9 kg BP: IVSd: 1.8 cm (0.6 - 1.1) LVIDd: 5.6 cm (3.9 - 5.3) LVPWd: 2.2 cm (0.6 - 1.1) IVSs: 2.0 cm LVIDs: 4.5 cm LVPWs: 2.4 cm LAESV Index (A-L): 23.02 ml/m Ao Diam: 3.5 cm (2.0 - 3.7) AV Cusp: 2.1 cm (1.5 - 2.6) LA Diam: 4.1 cm (2.7 - 3.8) MV EXCURSION: 15.271 mm (> 18.000) MV EF SLOPE: 42 mm/s (70 - 150) EPSS: 2.0 cm MV E Luis Enrique: 0.55 m/s MV DecT: 225 ms MV A Luis Enrique: 0.83 m/s MV E/A Ratio: 0.67 AR PHT: 352 ms RAP: 5.00 mmHg RVSP: 19.76 mmHg FINDINGS -------- Sinus rhythm. Pt is uncooperative The left ventricular size is normal. There is moderate concentric left ventricular hypertrophy. T here is moderate global hypokinesis of LV . Overall left ventricular systolic function is moderatel y impaired with, an EF between 35 - 40 %. The right ventricle is normal in size. Normal LA size by volume 22+/-6 ml/m2. The right atrial size is normal. Aortic valve is trileaflet and is mildly thickened. Trace amount of aortic regurgitation. The mitral valve leaflets are mildly thickened. Moderate mitral regurgitation is present. Mild tricuspid regurgitation present. The right ventricular systolic pressure, as measured by Doppl er, is 19.76mmHg. There is no pulmonic regurgitation present. The aortic root size is normal. Normal inferior vena cava with normal inspiratory collapse consistent with estimated right atrial pre ssure of 5 mmHg. There is no pericardial effusion. CONCLUSIONS -------- 1. Sinus rhythm. 2. Pt is uncooperative 3. The left ventricular size is normal. 4. There is moderate global hypokinesis of LV . 5. Overall left ventricular systolic function is moderately impaired with, an EF between 35 - 40 %. 6. The right ventricle is normal in size. 7. Normal LA size by volume 22+/-6 ml/m2. 8. The right atrial size is normal. 9. Aortic valve is trileaflet and is mildly thickened. 10. Trace amount of aortic regurgitation. 11. The mitral valve leaflets are mildly thickened. 12. Moderate mitral regurgitation is present. 13. Mild tricuspid regurgitation present. 14. The right ventricular systolic pressure, as measured by Doppler, is 19.76mmHg. 15. There is no pulmonic regurgitation present. 16. The aortic root size is normal. 17. Normal inferior vena cava with normal inspiratory collapse consistent with estimated right atrial pressure of 5 mmHg. 18. There is no pericardial effusion. BUILD AND RELEASE MANAGER: Brittney Nelson RDCS
[2018-07-06 16:53] LABS: Glucose,Whole Blood 275 mg/dL (75-99)
[2018-07-06 20:45] LABS: Glucose,Whole Blood 195 mg/dL (75-99)
[2018-07-06] MEDS: FAMOTIDINE 20 MG/2 ML VIAL IV SCH (20:45)
[2018-07-06] MEDS ORDERED: INSULIN DETEMIR (LEVEMIR) 100 UNIT/ML SYR SQ SCH (22:00)
[2018-07-06] MEDS: SODIUM CHLORIDE 0.9% 1,000 ML IV SCH (23:29)
[2018-07-07 05:40] VITALS: RESP 16; TEMP 97.7
[2018-07-07 06:31] LABS: Glucose,Whole Blood 196 mg/dL (75-99)
[2018-07-07 06:54] LABS: Anion Gap 8 mmol/L; Blood Urea Nitrogen 15 mg/dL (9-20); Calcium 10.3 mg/dL (8.4-10.2); Carbon Dioxide 26 mmol/L (22-30); Chloride 102 mmol/L (98-107); Glucose 203 mg/dL (74-99); HCT 46.6 % (39.0-53.0); HGB 14.7 gm/dL (13.0-17.5); MCH 28.3 pg (25.0-35.0); MCHC 31.5 g/dL (31.0-37.0); MCV 89.8 fL (80.0-100.0); Mean Platelet Volume 8.9; Platelet Count 133 k/uL (150-450); Potassium 4.1 mmol/L (3.5-5.1); RBC 5.18 m/uL (4.30-5.90); RDW 15.1 % (11.5-15.5); Sodium 136 mmol/L (137-145); WBC 6.5 k/uL (3.8-10.6)
[2018-07-07] MEDS: ENALAPRILAT 1.25 MG/ML 1 ML VIAL IVP PRN ×3 (07:11→14:56)
[2018-07-07] MEDS: INSULIN ASPART (NovoLOG) 100 UNIT/ML VIAL SQ SCH ×2 (07:11→11:46)
[2018-07-07 08:00] LABS: Large Platelets Present; Lymphocytes # (M) 2.21 k/uL (1.0-4.8); Monocytes # (M) 0.59 k/uL (0-1.0); Neutrophils # (M) 3.71 k/uL (1.3-7.7); Neutrophils % (M) 57 %; Nucleated Red Blood Cells 0 /100 WBC (0-0); Total Cells Counted 100
[2018-07-07] MEDS ORDERED: METOPROLOL TARTRATE 50 MG TAB PO SCH (09:15)
[2018-07-07] MEDS ORDERED: INSULIN DETEMIR (LEVEMIR) 100 UNIT/ML SYR SQ ONE (09:30)
--- NOTE | 2018-07-07 10:35 | CDI ---
Documentation Clarification Form Date: 07/07/2018 9:54:38 AM From: Ayesha Miller RN, CCDS Admit Date: 07/05/2018 10:09:00 PM Patient Name: Eric Barnes Visit Number: [id number] Discharge Date: ATTENTION: The Clinical Documentation Specialists (CDI) and [facility] Coding Staff appreciate your assistance in clarifying documentation. Please respond to the clarification below the line at the bottom and electronically sign. The CDI & [facility] Coding staff will review the response and follow-up if needed. Please note: Queries are made part of the Legal Health Record. If you have any questions, please contact the author of this message via ITS. Dr. Carlos Sheet The patient presented with elevated blood pressure, noted as uncontrolled by cardiology and elevated blood sugar. History/Risk Factors: Heart Failure, Diabetes, Mellitus, Hypertension, Current every day smoker Clinical Indicators: 53-year-old male with states he is out of his medications for his blood pressure and blood sugar. Patient states he feels unwell, feeling dizzy, weak, and shaky denies any other complaints. Lab findings: WBC 7.6, co2 19, rbs 347, Hemoglobin A1C 16.0, UA + glucose, + ketones, Acetone +; Troponin I 0.055, 0.069, 0.068 Vital signs: 152/107 104 18, 160/80 99 18, 162/111 93 18, 158/108 89 148 CXR; Cardiomegaly Other indicators: Dr. Oron[place]: past medical history of diabetes and cardiomyopathy who is noncompliant with his therapy. EKG does not reveal acute ischemic changes. DKA, Uncontrolled hypertension Treatment: IV Vasotec ASA Lopressor PO IV Fluids In your professional opinion, can you please further clarify hypertension and does it indicate? Hypertensive urgency Hypertensive Emergency (specify if any noted or potential organ damage) Other, please specify Unable to determine (Last Revision: June 2017) essentia hypertension MTDD
--- NOTE | 2018-07-07 10:56 | CDI ---
Documentation Clarification Form Date: 07/07/2108 From: Ayesha Miller RN, CCDS Admit Date: 07/05/2018 10:09:00 PM Patient Name: Eric Barnes Visit Number: [id number] Discharge Date: ATTENTION: The Clinical Documentation Specialists (CDI) and [facility] Coding Staff appreciate your assistance in clarifying documentation. Please respond to the clarification below the line at the bottom and electronically sign. The CDI & [facility] Coding staff will review the response and follow-up if needed. Please note: Queries are made part of the Legal Health Record. If you have any questions, please contact the author of this message via ITS. Dr. Terrance Quintero CHF is documented in the past medical history and your H/P and further clarification is needed. History/Risk Factors: Heart Failure, Diabetes Mellitus, Hypertension Clinical Indicators: 53-year-old male with cardiomyopathy and congest heart failure present with elevated blood sugars and elevated blood pressure related to noncompliant with his therapy. EKG shows sinus rhythm without significant ST-T wave changes VS/Pulse OX: 152/107 104 18 98.7 CXR: Cardiomegaly. No active cardiopulmonary disease. Echocardiogram Results: Overall left ventricular systolic function is moderately impaired with an EF between 35-40 % Treatment: ECHO Telemetry monitoring Lopressor PO In your professional opinion, can you please clarify the acuity and type of CHF if known? Chronic Systolic Heart Failure: Other, please specify Unable to determine Chronic Systolic & Diastolic Heart Failure: Other, please specify Unable to Determine (Last Revision: June 2017) Unable to Determine MTDD
--- NOTE | 2018-07-07 11:34 | P.PN ---
Subjective Progress Note Date: 07/07/18 Is is an -Luxembourger 53-year-old gentleman with history of diabetes, who has history of being noncompliant with therapy in the past. He presented to the hospital with symptoms of dizziness, weakness, and just generally feeling unwell. He was found to have diabetic ketoacidosis, cardiology consultation was requested because of abnormality in troponins. Patient was sent [facility] in 2017, he underwent a cardiac catheterization at that time which revealed normal coronary arteries with an ejection fraction of 25-30%, he was advised LifeVest in evaluation for ICD after optimization of medical therapy. Echocardiogram with Doppler study was performed which revealed an ejection fraction of 35-40%, moderate mitral regurgitation. He was seen and examined today, overall feels well, he should be able to be discharged home today from cardiology's perspective to follow-up with his satin finisher on discharge. The abnormality noted in his troponin here was not suggestive of acute coronary syn drome, and we know the patient had normal coronary arteries in 2017. Upon review of the records from [facility], he was also noted to have abnormal troponins at that time. Objective - Vital Signs Vital signs: Vital Signs Temp 97.7 F 07/07/18 04:00 Pulse 84 07/07/18 04:00 Resp 16 07/07/18 04:00 BP 174/119 07/07/18 04:00 Pulse Ox 99 07/07/18 04:00 Intake & Output 07/06/18 07/07/18 07/07/18 18:59 06:59 18:59 Intake Total 444 360 Output Total 600 1300 300 Balance -156 -1300 60 Weight 114 kg 118.2 kg Intake: Oral 444 360 Output: Urine 600 1300 300 Other: Voiding Method Urinal Urinal # Voids 3 1 - Exam PHYSICAL EXAMINATION: GENERAL: 53-year-old -Luxembourger gentleman in no acute distress at the time of my examination HEENT: Head is atraumatic, normocephalic. Pupils equal, round. Sclera anicteric. Conjunctiva are clear. Mucous membranes of the mouth are moist. Neck is supple. There is no elevated jugular venous pressure. No carotid bruit is heard. HEART EXAMINATION: S1 S2 1 systolic murmur is heard CHEST EXAMINATION: Lungs are clear to auscultation and precussion. No chest wall tenderness is noted on palpation or with deep breathing. ABDOMEN: Soft, nontender. Bowel sounds are heard. No organomegaly noted. EXTREMITIES: 2+ peripheral pulses with no evidence of peripheral edema and no c argelia tenderness noted. NEUROLOGIC patient is awake, alert and oriented 3 . . - Labs CBC & Chem 7: 07/07/18 06:20 07/07/18 06:20 Labs: Abnormal Lab Results - Last 24 Hours (Table) 07/06/18 07/06/18 07/06/18 Range/Units 06:57 11:29 16:52 Plt Count (150-450) k/uL Sodium (137-145) mmol/L Glucose (74-99) mg/dL POC Glucose (mg/dL) 317 H 275 H (75-99) mg/dL Hemoglobin A1c 16.0 H (4.0-6.0) % Calcium (8.4-10.2) mg/dL 07/06/18 07/07/18 07/07/18 Range/Units 20:44 06:20 06:20 Plt Count 133 L (150-450) k/uL Sodium 136 L (137-145) mmol/L Glucose 203 H (74-99) mg/dL POC Glucose (mg/dL) 195 H (75-99) mg/dL Hemoglobin A1c (4.0-6.0) % Calcium 10.3 H (8.4-10.2) mg/dL 07/07/18 Range/Units 06:29 Plt Count (150-450) k/uL Sodium (137-145) mmol/L Glucose (74-99) mg/dL POC Glucose (mg/dL) 196 H (75-99) mg/dL Hemoglobin A1c (4.0-6.0) % Calcium (8.4-10.2) mg/dL Assessment and Plan Plan: Assessment and plan #1 DKA #2 abnormal troponin, not consistent with acute coronary syndrome. Patient had heart catheterization a year ago which revealed normal coronary arteries #3 nonischemic cardiomyopathy #4 hypertension #5 noncompliance Plan We did review the echo and cardiac catheterization performed last year at [facility], patient had a reduced LV function at that time, his coronary arteries were normal. He was also noted on that admission to have abnormality in troponins. He was advised at that time LifeVest with maximum medical therapy and possible AICD down the road. From our perspective he may be able to be discharged home today to follow-up with his satin finisher. DNP note has been reviewed, I agree with a documented findings and plan of care. Patient was seen and examined.
[2018-07-07] MEDS: HEPARIN SODIUM,PORCINE 5,000 UNIT/ML 1 ML VIAL SQ SCH (11:36)
[2018-07-07] MEDS: FAMOTIDINE 20 MG/2 ML VIAL IV SCH (11:36)
[2018-07-07] MEDS: ASPIRIN 325 MG TAB PO SCH (11:36)
[2018-07-07 11:47] LABS: Glucose,Whole Blood 245 mg/dL (75-99)
[2018-07-07] MEDS: SODIUM CHLORIDE 0.9% 1,000 ML IV SCH (11:59)
[2018-07-07 13:27] VITALS: PULSE 96
[2018-07-07 15:35] VITALS: BP 152/98
[2018-07-07] MEDS ORDERED: FAMOTIDINE 20 MG TAB PO SCH (21:00)
--- NOTE | 2018-07-14 07:41 | P.DS ---
Providers Date of admission: 07/05/18 22:09 Attending physician: Akiko De La Rosa Consults: 07/05/18 22:36 Consult Physician Urgent Consulting Provider: [facility] Consult Reason/Comments: Elevated Trop; EKG changes Do you want consulting provider notified?: Yes Primary care physician: Ata Gutierrez Hospital Course: Diagnoses: Diabetic ketoacidosis Elevated troponins, unlikely due to cardiology causes as per form maker evaluation History of diabetes mellitus, type II History of coronary artery disease status post cardiac cath History of congestive heart failure with ejection fraction of 30% Hypertension Hospital course: this is a pleasant 53 yo M with pmh of congestive heart failure with ejection fraction of 30%, coronary artery disease status post cardiac cath. , diabetes mellitus , hypertension , he is a patient of Dr. Martinez. Patient says that he takes Levemir 30 units at night and 5-10 units with meals. However he ran out of his medication. And he started feeling unwell for the last 2 weeks with some lightheadedness and when he came in to the hospital was found to have diabetic ketoacidosis. Patient was treated with insulin IV fluids and his sugars is controlled. His anion gap Went from 16 down to 8. Patient also found elements of elevated troponins. He was evaluated by form maker and he felt that this is not related to an cardiac events. Previous cardiac cath --report was reviewed by form maker. Patient was cleared by cardiology team for discharge with consideration for outpatient stress test: An appointment was made for the patient with cardiology team and patient verbalized understanding and said he will follow-up with him Patient was cleared by cardiology team for discharge. Patient himself felt that his back to his usual state. His chest pain free. No dyspnea. No change in urine or bowel habits. No nausea vomiting. No abdominal pain. No fever. Patient also was counseled about the importance of adherence to treatment for his diabetes and the risks of non-adherence to therapy and he understands and agrees Problems and management plan was discussed with the patient including importance of aggressive treatment and he verbalized understanding and acceptance Patient was found stable and can be discharged home in correct prognosis however he needs follow-up as an outpatient discharge exam Gen: patient is a AAOx3, no distress CVS: S1-S2, RRR, no murmur Lungs: B/L CTA, no wheezing Abdomen: soft, no distention, no tenderness, positive bowel sounds Extremity: no leg edema or induration Time spent more than 35 minutes Patient Condition at Discharge: Serious Plan - Discharge Summary Discharge Rx Participant: No New Discharge Prescriptions: New Aspirin 325 mg PO DAILY #30 tab Insulin Glargine,Hum.rec.anlog [Basaglar Kwikpen U-100] 30 unit SQ HS #30 syr Metoprolol Tartrate [Lopressor] 50 mg PO BID #60 tab Insulin Lispro [Admelog] 5 unit SQ TID-W/MEALS #1 vial Lisinopril [Prinivil] 5 mg PO DAILY #30 tablet Discharge Medication List Aspirin 325 mg PO DAILY #30 tab 07/07/18 [Rx] Insulin Glargine,Hum.rec.anlog [Basaglar Kwikpen U-100] 30 unit SQ HS #30 syr 07/07/18 [Rx] Insulin Lispro [Admelog] 5 unit SQ TID-W/MEALS #1 vial 07/07/18 [Rx] Lisinopril [Prinivil] 5 mg PO DAILY #30 tablet 07/07/18 [Rx] Metoprolol Tartrate [Lopressor] 50 mg PO BID #60 tab 07/07/18 [Rx] Follow up Appointment(s)/Referral(s): [facility] [Provider Group] - 07/14/18 1:00 pm (Thursday) Brenda Berumen MD [Primary Care Provider] - 07/13/18 1:50 pm Patient Instructions/Handouts: Chest Pain (DC), Diabetic Ketoacidosis (DC) Activity/Diet/Wound Care/Special Instructions: Patient's insurance does not cover Levemier - will need to prescribe Admelog at discharge.... diabetic 1180 k [place]ton per day diet activity as tolerated Discharge Disposition: HOME SELF-CARE
== END 2018-07-07 15:43 | disposition home or self-care (01) ==
LOC: EC 18:11 → INTOOBSV 22:09 → 3SCARD 22:09 → UNDODISIN 07-07 15:43
PROVIDERS: ADMIT Hospitalist; ATTEND Hospitalist
DX: E11.10 Type 2 diabetes mellitus with ketoacidosis without coma (principal); I42.9 Cardiomyopathy, unspecified; I11.0 Hypertensive heart disease with heart failure; I50.9 Heart failure, unspecified; T50.996A Underdosing of other drugs, medicaments and biological substances, initial encounter; T46.5X6A Underdosing of other antihypertensive drugs, initial encounter; R77.8 Other specified abnormalities of plasma proteins; E66.9 Obesity, unspecified; Z68.33 Body mass index [BMI] 33.0-33.9, adult; I25.10 Atherosclerotic heart disease of native coronary artery without angina pectoris; F17.200 Nicotine dependence, unspecified, uncomplicated; M17.11 Unilateral primary osteoarthritis, right knee; F41.9 Anxiety disorder, unspecified; Z88.0 Allergy status to penicillin; Z91.128 Patient's intentional underdosing of medication regimen for other reason; Z81.8 Family history of other mental and behavioral disorders; Z80.41 Family history of malignant neoplasm of ovary
CPT/HCPCS: 96376 ×3; 96372; 96375 ×2; 96361; 96365; 99285; 36415; 93005; 93306; 80061; 80053; 80048; 82009; 84484 ×2; 85025 ×2; 85610; 85730 ×2; 81003; 83036; 71046; G0378 ×3; J1644 ×3

== ENCOUNTER 2018-09-16 05:09 | Inpatient (IN) | payer OTHER ==
[2018-09-16] MEDS ORDERED: FUROSEMIDE 10 MG/ML 4 ML VIAL IV STA (05:39)
[2018-09-16] MEDS ORDERED: NITROGLYCERIN OINT 1 INCH/GM PACKET TOPICAL STA (05:39)
[2018-09-16] MEDS ORDERED: MORPHINE SULFATE 4 MG/ML SYRINGE IV STA (05:39)
[2018-09-16 06:03] LABS: Basophils % (A) 0 %; Eosinophils # (A) 0.1 k/uL (0-0.7); Eosinophils % (A) 1 %; HCT 42.6 % (39.0-53.0); HGB 13.3 gm/dL (13.0-17.5); Hypochromasia Slight; Lymphocytes # (A) 2.2 k/uL (1.0-4.8); Lymphocytes % (A) 29 %; MCH 29.2 pg (25.0-35.0); MCHC 31.3 g/dL (31.0-37.0); MCV 93.4 fL (80.0-100.0); Mean Platelet Volume 8.2; Monocytes # (A) 0.4 k/uL (0-1.0); Monocytes % (A) 5 %; Neutrophils # (A) 4.7 k/uL (1.3-7.7); Neutrophils % (A) 62 %; Platelet Count 141 k/uL (150-450); RBC 4.56 m/uL (4.30-5.90); RDW 14.8 % (11.5-15.5); WBC 7.6 k/uL (3.8-10.6)
[2018-09-16 06:12] LABS: ALT 79 U/L (21-72); AST 60 U/L (17-59); African American GFR (CKD) >90 (>60 ml/min/1.73 sqM); Albumin 3.7 g/dL (3.5-5.0); Alkaline Phosphatase 50 U/L (38-126); Anion Gap 6 mmol/L; Blood Urea Nitrogen 18 mg/dL (9-20); Calcium 9.9 mg/dL (8.4-10.2); Carbon Dioxide 24 mmol/L (22-30); Chloride 111 mmol/L (98-107); Glucose 136 mg/dL (74-99); Magnesium 1.8 mg/dL (1.6-2.3); Potassium 4.2 mmol/L (3.5-5.1); Sodium 141 mmol/L (137-145); Total Bilirubin 0.4 mg/dL (0.2-1.3); Total Protein 6.5 g/dL (6.3-8.2)
[2018-09-16 06:13] LABS: INR 0.9 (<1.2); Partial Thromboplastin Time 25.4 sec (22.0-30.0); Prothrombin Time 9.9 sec (9.0-12.0)
--- NOTE | 2018-09-16 06:27 | ED ---
SOB HPI - General Chief Complaint: Shortness of Breath Stated Complaint: JERI Time Seen by Provider: 09/16/18 05:25 Source: patient, EMS - History of Present Illness Initial Comments: This patient is a 53-year-old man who presents to be evaluated for what he suspects is a recurrence of CHF. The patient states that he has run out of his metoprolol for number weeks. He states over the past few days he is been getting more short of breath at night when he tries to lie flat. He is been trying to sleep in a more upright position. He states that now he is not able to sleep due to the orthopnea. He has had similar symptoms before and was told that he had congestive heart failure. Patient denies chest pain. MD Complaint: shortness of breath -: days(s) Improves With: upright position Worsens With: lying flat Known History Of: congestive heart failure Associated Symptoms: denies other symptoms Treatments Prior to Arrival: none - Related Data Home Medications Medication Instructions Recorded Confirmed Lisinopril 20 mg PO DAILY 09/16/18 09/16/18 Lisinopril [Prinivil] mg PO DAILY 09/16/18 Previous Rx's Medication Instructions Recorded Aspirin 325 mg PO DAILY #30 tab 07/07/18 Insulin Glargine,Hum.rec.anlog 30 unit SQ HS #30 syr 07/07/18 [Basaglar Kwikpen U-100] Insulin Lispro [Admelog] 5 unit SQ TID-W/MEALS #1 vial 07/07/18 Metoprolol Tartrate [Lopressor] 50 mg PO BID #60 tab 07/07/18 Allergies Allergy/AdvReac Type Severity Reaction Status Date / Time amoxicillin Allergy Rash/Hives Verified 09/16/18 05:14 Review of Systems ROS Statement: Those systems with pertinent positive or pertinent negative responses have been documented in the HPI. ROS Other: All systems not noted in ROS Statement are negative. Constitutional: Denies: fever, chills Respiratory: Denies: cough, dyspnea, hemoptysis Cardiovascular: Reports: orthopnea. Denies: chest pain, palpitations, syncope Gastrointestinal: Denies: abdominal pain, nausea, vomiting, diarrhea Genitourinary: Denies: dysuria, hematuria Musculoskeletal: Denies: back pain Skin: Denies: rash Neurological: Denies: headache, weakness Past Medical History Past Medical History: Chest Pain / Angina, Heart Failure, Diabetes Mellitus, Hypertension Additional Past Medical History / Comment(s): NIDDM type II diagnosed in 2007/pt took self off diabetic medications in 2013 because he felt his blood sugars were good because he had been getting normal blood glucose numbers, R knee arthritis, CHF with a ventricular ejection fraction of 30% History of Any Multi-Drug Resistant Organisms: None Reported Past Surgical History: Heart Catheterization, Orthopedic Surgery Additional Past Surgical History / Comment(s): 02/2017 cardiac cath at [facility]-normal, R knee arthroscopy Past Anesthesia/Blood Transfusion Reactions: No Reported Reaction Past Psychological History: Anxiety Smoking Status: Current every day smoker Past Alcohol Use History: None Reported Past Drug Use History: None Reported - Past Family History Mother Family Medical History: Cancer Additional Family Medical History / Comment(s): Mother has psychological pr oblems., of ovarian cancer Father History Unknown: Yes General Exam General appearance: alert, in no apparent distress Head exam: Present: atraumatic, normocephalic Eye exam: Present: normal appearance. Absent: scleral icterus, conjunctival injection ENT exam: Present: normal oropharynx Neck exam: Present: normal inspection Respiratory exam: Present: rales. Absent: respiratory distress, wheezes, rhonchi, stridor Cardiovascular Exam: Present: regular rate, normal rhythm, gallop. Absent: systolic murmur, diastolic murmur, rubs GI/Abdominal exam: Present: soft. Absent: distended, tenderness, guarding, rebound, mass Extremities exam: Present: normal inspection, normal capillary refill. Absent: pedal edema Back exam: Present: normal inspection. Absent: CVA tenderness (R), CVA tenderness (L) Neurological exam: Present: alert Skin exam: Present: warm, dry, intact, normal color. Absent: rash Course Vital Signs 09/16/18 09/16/18 05:11 06:15 Temperature 98.2 F Pulse Rate 67 85 Respiratory 18 20 Rate Blood Pressure 161/121 151/117 O2 Sat by Pulse 95 95 Oximetry Medical Decision Making - Lab Data Result diagrams: 09/16/18 05:54 09/16/18 05:54 Lab Results 09/16/18 09/16/18 09/16/18 Range/Units 05:54 05:54 05:54 WBC 7.6 (3.8-10.6) k/uL RBC 4.56 (4.30-5.90) m/uL Hgb 13.3 (13.0-17.5) gm/dL Hct 42.6 (39.0-53.0) % MCV 93.4 (80.0-100.0) fL MCH 29.2 (25.0-35.0) pg MCHC 31.3 (31.0-37.0) g/dL RDW 14.8 (11.5-15.5) % Plt Count 141 L (150-450) k/uL Neutrophils % 62 % Lymphocytes % 29 % Monocytes % 5 % Eosinophils % 1 % Basophils % 0 % Neutrophils # 4.7 (1.3-7.7) k/uL Lymphocytes # 2.2 (1.0-4.8) k/uL Monocytes # 0.4 (0-1.0) k/uL Eosinophils # 0.1 (0-0.7) k/uL Basophils # 0.0 (0-0.2) k/uL Hypochromasia Slight PT (9.0-12.0) sec INR (<1.2) APTT (22.0-30.0) sec Sodium 141 (137-145) mmol/L Potassium 4.2 (3.5-5.1) mmol/L Chloride 111 H (98-107) mmol/L Carbon Dioxide 24 (22-30) mmol/L Anion Gap 6 mmol/L BUN 18 (9-20) mg/dL Creatinine 0.78 (0.66-1.25) mg/dL Est GFR (CKD-EPI)AfAm >90 (>60 ml/min/1.73 sqM) Est GFR (CKD-EPI)NonAf >90 (>60 ml/min/1.73 sqM) Glucose 136 H (74-99) mg/dL Calcium 9.9 (8.4-10.2) mg/dL Magnesium 1.8 (1.6-2.3) mg/dL Total Bilirubin 0.4 (0.2-1.3) mg/dL AST 60 H (17-59) U/L ALT 79 H (21-72) U/L Alkaline Phosphatase 50 (38-126) U/L Troponin I (0.000-0.034) ng/mL NT-Pro-B Natriuret Pep 973 pg/mL Total Protein 6.5 (6.3-8.2) g/dL Albumin 3.7 (3.5-5.0) g/dL Urine Color Urine Appearance (Clear) Urine pH (5.0-8.0) Ur Specific [place] (1.001-1.035) Urine Protein (Negative) Urine Glucose (UA) (Negative) Urine Ketones (Negative) Urine Blood (Negative) Urine Nitrite (Negative) Urine Bilirubin (Negative) Urine Urobilinogen (<2.0) mg/dL Ur Leukocyte Esterase (Negative) 09/16/18 09/16/18 09/16/18 Range/Units 05:54 05:54 07:10 WBC (3.8-10.6) k/uL RBC (4.30-5.90) m/uL Hgb (13.0-17.5) gm/dL Hct (39.0-53.0) % MCV (80.0-100.0) fL MCH (25.0-35.0) pg MCHC (31.0-37.0) g/dL RDW (11.5-15.5) % Plt Count (150-450) k/uL Neutrophils % % Lymphocytes % % Monocytes % % Eosinophils % % Basophils % % Neutrophils # (1.3-7.7) k/uL Lymphocytes # (1.0-4.8) k/uL Monocytes # (0-1.0) k/uL Eosinophils # (0-0.7) k/uL Basophils # (0-0.2) k/uL Hypochromasia PT 9.9 (9.0-12.0) sec INR 0.9 (<1.2) APTT 25.4 (22.0-30.0) sec Sodium (137-145) mmol/L Potassium (3.5-5.1) mmol/L Chloride (98-107) mmol/L Carbon Dioxide (22-30) mmol/L Anion Gap mmol/L BUN (9-20) mg/dL Creatinine (0.66-1.25) mg/dL Est GFR (CKD-EPI)AfAm (>60 ml/min/1.73 sqM) Est GFR (CKD-EPI)NonAf (>60 ml/min/1.73 sqM) Glucose (74-99) mg/dL Calcium (8.4-10.2) mg/dL Magnesium (1.6-2.3) mg/dL Total Bilirubin (0.2-1.3) mg/dL AST (17-59) U/L ALT (21-72) U/L Alkaline Phosphatase (38-126) U/L Troponin I 0.041 H* (0.000-0.034) ng/mL NT-Pro-B Natriuret Pep pg/mL Total Protein (6.3-8.2) g/dL Albumin (3.5-5.0) g/dL Urine Color Colorless Urine Appearance Clear (Clear) Urine pH 6.0 (5.0-8.0) Ur Specific [place] 1.004 (1.001-1.035) Urine Protein Negative (Negative) Urine Glucose (UA) Negative (Negative) Urine Ketones Negative (Negative) Urine Blood Negative (Negative) Urine Nitrite Negative (Negative) Urine Bilirubin Negative (Negative) Urine Urobilinogen <2.0 (<2.0) mg/dL Ur Leukocyte Esterase Negative (Negative) - EKG Data -: EKG Interpreted by [place] EKG shows normal: sinus rhythm, axis (Left axis deviation), intervals (TN interval is 206 ms, borderline. QRS duration 116 ms. QTC 480 ms, prolonged.), QRS complexes (Incomplete left bundle branch block.) Rate: normal (Rate approximately 81 bpm) Disposition Clinical Impression: Congestive heart failure, Elevated troponin Disposition: ADMITTED IP TO THIS HOSP Condition: Fair Is patient prescribed a controlled substance at d/c from ED?: No Referrals: Brenda Berumen MD [Primary Care Provider] - 1-2 days
[2018-09-16 07:26] LABS: Appearance,Urine Clear (Clear); Bilirubin,Urine Negative (Negative); Blood,Urine Negative (Negative); Color,Urine Colorless; Glucose,Urine (UA) Negative (Negative); Ketones,Urine Negative (Negative); Leukocyte Esterase,Urine Negative (Negative); Nitrite,Urine Negative (Negative); Protein,Urine Negative (Negative); Specific Gravity,Urine 1.004 (1.001-1.035); Urobilinogen,Urine <2.0 mg/dL (<2.0)
--- NOTE | 2018-09-16 07:26 | XR ---
EXAM: XR Chest, 2 Views CLINICAL HISTORY: ITS.REASON XR Reason: difficulty breathing TECHNIQUE: Frontal and lateral views of the chest. COMPARISON: 09/13/17. FINDINGS: Lungs: Unremarkable. No consolidation. Pleural space: Unremarkable. No pneumothorax. Heart: Mild cardiomegaly. Mediastinum: Unremarkable. Bones/joints: Unremarkable. IMPRESSION: 1. No acute findings in the chest. 2. Mild cardiomegaly.
[2018-09-16] MEDS ORDERED: NITROGLYCERIN OINT 1 INCH/GM PACKET TOPICAL SCH (09:00)
--- NOTE | 2018-09-16 09:52 | CONS ---
CONSULTATION HISTORY: Mr. Barnes is a 53-year-old male, known history of hypertension, diabetes mellitus, history of cardiomyopathy that according to him was nonischemic, who presented with symptoms of progressive dyspnea, peripheral edema, PND and orthopnea. His symptoms have been going on for the last week or so. He denies any chest discomfort. He underwent cardiac catheterization at [facility] in 2016, according to him at that time there was no obstructive coronary disease. He underwent an echocardiogram in June of this year that showed an ejection fraction of 35% to 40% The patient has not been compliant with his medication, has been off his beta ibis for the last months at least. He denies any dizziness or palpitation. He denies any syncope. He denies any documented malignant arrhythmia. His coronary risk factors are remarkable for the history of smoking, history of hypertension, and diabetes. MEDICATION: At home, insulin, metoprolol tartrate 50 mg twice a day, lisinopril 20 mg daily. REVIEW OF SYSTEMS: RESPIRATORY SYSTEM: He has a cough, dyspnea on exertion, and a history of chronic tobacco use. GI SYSTEM: No recent GI bleed. No peptic ulcer disease. No nausea or vomiting. SYSTEM: No dysuria or hematuria. NERVOUS SYSTEM: No history of stroke or seizure. PHYSICAL EXAMINATION: He is a 53-year-old male, alert, oriented, in no apparent distress. Blood pressure 164/107 with a heart rate in the 80s. HEAD: Normocephalic. EYES: Sclerae anicteric. NECK: Good upstroke with mild increased jugular venous pressure. LUNGS: Few crackles at the bases. HEART: Regular rate and rhythm. HEART: S1-S2 with S4 and a systolic ejection murmur heard at the base. No diastolic murmur no rub. ABDOMEN: Soft, nontender. Positive bowel sounds no megaly. EXTREMITIES: +1 to 2 edema bilaterally. LAB DATA: Lab data revealed a troponin 0.041. NT proBNP of 973. BUN and creatinine of 18 and 0.7. Potassium 4.2, hemoglobin is 13.3. EKG revealed a sinus mechanism with left axis deviation, nonspecific ST-T wave changes. Chest x-ray is consistent with congestive heart failure. IMPRESSION: 1. Symptoms of worsening congestive heart failure in a patient with known history of nonischemic cardiomyopathy. 2. Noncompliance. 3. Hypertension. 4. Diabetes. 5. History of chronic tobacco use. RECOMMENDATIONS: I will start him on a beta ibis in form of Coreg 6.5 mg twice a day and I will start him on Entresto. We will hold the lisinopril at this time. We will continue IV Lasix. I will add Aldactone to his regimen. I will also add Lipitor because of his history of diabetes. I have discussed with him the importance of compliance, smoking cessation, as well as low salt intake. I will try to obtain the results of his prior cardiac catheterization. Depending on his progress, further recommendation will be made. Thank you for this consult. We will follow with you. JACK / IJN: [id number] /
[2018-09-16 11:09] VITALS: BMI 33.3
[2018-09-16] MEDS: CARVEDILOL 6.25 MG TAB PO SCH ×2 (11:45→17:22)
[2018-09-16] MEDS: SPIRONOLACTONE 25 MG TAB PO SCH (11:45)
[2018-09-16] MEDS: ATORVASTATIN 40 MG TAB PO SCH (11:45)
[2018-09-16 11:51] LABS: Cholesterol 136 mg/dL (<200); HDL Cholesterol 71 mg/dL (40-60); LDL Cholesterol,Calculated 50 mg/dL (0-99); Triglycerides 77 mg/dL (<150)
[2018-09-16 12:17] LABS: Glucose,Whole Blood 99 mg/dL (75-99)
[2018-09-16] MEDS: INSULIN ASPART (NovoLOG) 100 UNIT/ML VIAL SQ SCH ×2 (13:14→17:17)
--- NOTE | 2018-09-16 13:41 | P.HPIM ---
History of Present Illness This is a pleasant 53 years old -[place] male with past medical history of chest pain, coronary artery disease, diabetes mellitus, hypertension, congestive heart failure, who follows up with Dr. Jorge, he lives in a senior living. For the last 2 nights he has paroxysmal nocturnal dyspnea when he walks up gasping for air. He denies chest pain or other dyspnea symptoms. No coughing. No abdominal pain. No change in urine or bowel habits. No fever. Patient is not very well compliant with his medication. Patient is currently smoking about 1 pack per day, he denies alcohol or illicit drugs. On admission vitals are stable. CBC and BMP and liver enzymes were unremarkable. Troponin is elevated at 0.04 and 0.03. Urinalysis is no suspicious for infection.chest x-ray: Mild cardiomegaly with no acute findings. Review of Systems CONSTITUTIONAL: No fever, no malaise, no fatigue. HEENT: No recent visual problems or hearing problems. Denied any sore throat. CARDIOVASCULAR: No orthopnea, PND, no palpitations, no syncope. PULMONARY: No shortness of breath, no cough, no hemoptysis. GASTROINTESTINAL: No diarrhea, no nausea, no vomiting, no abdominal pain. Normoactive bowel sounds. NEUROLOGICAL: No headaches, no weakness, no numbness. HEMATOLOGICAL: Denies any bleeding or petechiae. GENITOURINARY: Denies any burning micturition, frequency, or urgency. MUSCULOSKELETAL/RHEUMATOLOGICAL: Denies any joint pain, swelling, or any muscle pain. ENDOCRINE: Denies any polyuria or polydipsia. Past Medical History Past Medical History: Chest Pain / Angina, Heart Failure, Diabetes Mellitus, Hypertension Additional Past Medical History / Comment(s): NIDDM type II diagnosed in 2007/pt took self off diabetic medications in 2013 because he felt his blood sugars were good because he had been getting normal blood glucose numbers, R knee arthritis, CHF with a ventricular ejection fraction of 30% History of Any Multi-Drug Resistant Organisms: None Reported Past Surgical History: Heart Catheterization, Orthopedic Surgery Additional Past Surgical History / Comment(s): 02/2017 cardiac cath at [facility]-normal, R knee arthroscopy Past Anesthesia/Blood Transfusion Reactions: No Reported Reaction Past Psychological History: Anxiety Additional Psychological History / Comment(s): Pt resides with his spouse. He is independent. Smoking Status: Current every day smoker Past Alcohol Use History: None Reported Additional Past Alcohol Use History / Comment(s): Pt started smoking in 1981 and is a 1/2 ppd smoker. Past Drug Use History: None Reported - Past Family History Mother Family Medical History: Cancer Additional Family Medical History / Comment(s): Mother has psychological problems., of ovarian cancer Father History Unknown: Yes Medications and Allergies Home Medications Medication Instructions Recorded Confirmed Type Insulin Glargine,Hum.rec.anlog 30 unit SQ HS #30 syr 07/07/18 09/16/18 Rx [Basaglar Kwikpen U-100] Insulin Lispro [Admelog] 5 unit SQ TID-W/MEALS #1 vial 07/07/18 09/16/18 Rx Metoprolol Tartrate [Lopressor] 50 mg PO BID #60 tab 07/07/18 09/16/18 Rx Lisinopril 20 mg PO DAILY 09/16/18 09/16/18 History Allergies Allergy/AdvReac Type Severity Reaction Status Date / Time amoxicillin Allergy Rash/Hives Verified 09/16/18 07:55 Physical Exam Vitals: Vital Signs Temp Pulse Pulse Resp BP BP Pulse Ox 09/16/18 11:45 83 16 154/109 97 09/16/18 09:01 98.2 F 88 18 164/107 98 09/16/18 08:55 98.2 F 88 16 164/107 98 09/16/18 08:05 87 18 155/67 95 09/16/18 06:15 85 20 151/117 95 09/16/18 05:11 98.2 F 67 18 161/121 95 Intake and Output 09/15/18 09/16/18 09/16/18 22:59 06:59 14:59 Output Total 600 Balance -600 Output: Urine 600 Other: Voiding Method Urinal # Voids 1 # Bowel Movements 0 Weight 117.934 kg 123.7 kg GENERAL: The patient is alert and oriented x3, not in any acute distress. Obese HEENT: Pupils are round and equally reacting to light. EOMI. No scleral icterus. No conjunctival pallor. Normocephalic, atraumatic. No pharyngeal erythema. No thyromegaly. CARDIOVASCULAR: S1 and S2 present. No murmurs, rubs, or gallops. PULMONARY: Chest is clear to auscultation, no wheezing or crackles. ABDOMEN: Soft, nontender, nondistended, normoactive bowel sounds. No palpable organomegaly. MUSCULOSKELETAL: No joint swelling or deformity. -EXTREMITIES: No cyanosis, clubbing,. 1+ bilateral leg swelling NEUROLOGICAL: Gross neurological examination did not reveal any focal deficits. SKIN: No rashes. Results CBC & Chem 7: 09/16/18 05:54 09/16/18 05:54 Labs: Abnormal Lab Results - Last 24 Hours (Table) 09/16/18 09/16/18 09/16/18 Range/Units 05:54 05:54 05:54 Plt Count 141 L (150-450) k/uL Chloride 111 H (98-107) mmol/L Glucose 136 H (74-99) mg/dL AST 60 H (17-59) U/L ALT 79 H (21-72) U/L Troponin I 0.041 H* (0.000-0.034) ng/mL HDL Cholesterol (40-60) mg/dL 09/16/18 Range/Units 11:21 Plt Count (150-450) k/uL Chloride (98-107) mmol/L Glucose (74-99) mg/dL AST (17-59) U/L ALT (21-72) U/L Troponin I (0.000-0.034) ng/mL HDL Cholesterol 71 H (40-60) mg/dL Thrombosis Risk Factor Assmnt - Choose All That Apply Each Factor Represents 1 point: Age 41-60 years Thrombosis Risk Factor Assessment Total Risk Factor Score: 1 Thrombosis Risk Factor Assessment Level: Low Risk Assessment and Plan Assessment: Acute on chronic congestive heart failure Hypertension Type 2 diabetes mellitus Nicotine dependence None administered. He Plan: This is a pleasant 53 years old -Uk[place] male who presents with signs symptoms of worsening congestive heart failure. Continue with diuretic, beta ibis and nicotine patch, Aldactone, and entresto. Cardiology evaluation is appreciated Labs and medication were reviewed.. Continue same treatment. Continue with s ymptomatic treatment. Resume home medication. Monitor lytes and vitals. DVT and GI prophylaxis. Further recommendations of the clinical course of the patient DVT prophylaxis: Subcutaneous heparin GI Prophylaxis: Pepcid PT/OT: Pending Prognosis is guarded
[2018-09-16 16:58] LABS: Glucose,Whole Blood 93 mg/dL (75-99)
[2018-09-16] MEDS: NICOTINE 21MG/24HR PATCH TRANSDERM SCH (17:22)
[2018-09-16] MEDS: FUROSEMIDE 10 MG/ML 4 ML VIAL IV SCH (17:24)
[2018-09-16] MEDS: HEPARIN SODIUM,PORCINE 5,000 UNIT/ML 1 ML VIAL SQ SCH (20:40)
[2018-09-16] MEDS: FAMOTIDINE 20 MG/2 ML VIAL IV SCH (20:40)
[2018-09-16] MEDS: SACUBITRIL/VALSARTAN 24 MG-26 MG TABLET PO SCH (20:41)
[2018-09-16 21:05] LABS: Glucose,Whole Blood 198 mg/dL (75-99)
[2018-09-16] MEDS: INSULIN DETEMIR (LEVEMIR) 100 UNIT/ML SYR SQ SCH (21:10)
[2018-09-17 06:09] LABS: Glucose,Whole Blood 101 mg/dL (75-99)
[2018-09-17] MEDS: INSULIN ASPART (NovoLOG) 100 UNIT/ML VIAL SQ SCH ×3 (06:38→17:12)
[2018-09-17] MEDS: CARVEDILOL 6.25 MG TAB PO SCH ×2 (06:38→17:10)
[2018-09-17] MEDS: FUROSEMIDE 10 MG/ML 4 ML VIAL IV SCH (06:38)
[2018-09-17 07:15] LABS: ALT 72 U/L (21-72); AST 36 U/L (17-59); African American GFR (CKD) >90 (>60 ml/min/1.73 sqM); Alkaline Phosphatase 51 U/L (38-126); Anion Gap 6 mmol/L; Blood Urea Nitrogen 19 mg/dL (9-20); Calcium 10.5 mg/dL (8.4-10.2); Carbon Dioxide 29 mmol/L (22-30); Chloride 106 mmol/L (98-107); Glucose 98 mg/dL (74-99); Potassium 3.9 mmol/L (3.5-5.1); Sodium 141 mmol/L (137-145); Total Bilirubin 0.4 mg/dL (0.2-1.3)
[2018-09-17] MEDS ORDERED: ASPIRIN 325 MG TAB PO SCH (09:00)
--- NOTE | 2018-09-17 09:25 | PN ---
PROGRESS NOTE Mr. Barnes is a 53-year-old male with known history of nonischemic cardiomyopathy, history of noncompliance, who presented with progressive dyspnea, hypertension. He is feeling better today. He is anxious to go home. He is denying any chest pain. No dizziness. No palpitation. He denies any nausea. He continued on aspirin once a day, Lipitor 40 mg daily, Coreg 6.5 mg twice a day, and Entresto 24-26 mg twice a day, Lasix 40 mg IV q.12 hours and Aldactone 25 mg daily. PHYSICAL EXAMINATION: Blood pressure remains elevated to 150/100 with a heart rate in the 80s. LUNGS: Clear. HEART: Regular rate and rhythm, S1, S2, plus S4, no rub. ABDOMEN: Soft, nontender. EXTREMITIES: No edema. LAB DATA: Revealed a BUN and creatinine of 19 and 1.0, potassium 3.9. IMPRESSION: 1. Symptoms of congestive heart failure on the basis of systolic dysfunction with nonischemic cardiomyopathy. 2. Hypertension. 3. Noncompliance. 4. Diabetes. 5. History of chronic tobacco use. RECOMMENDATION: I will increase the dose of his Coreg and add hydrochlorothiazide to his regimen, increase his level of activity. Patient is anxious to go home today for personal reasons. The importance of compliance has been discussed with him there. Depending on his progress, further recommendation will be made. MMODL / IJN: [id number] /
[2018-09-17] MEDS: ATORVASTATIN 40 MG TAB PO SCH (09:57)
[2018-09-17] MEDS: HEPARIN SODIUM,PORCINE 5,000 UNIT/ML 1 ML VIAL SQ SCH ×2 (09:58→20:26)
[2018-09-17] MEDS: HYDROCHLOROTHIAZIDE 25 MG TAB PO SCH (09:58)
[2018-09-17] MEDS: SACUBITRIL/VALSARTAN 24 MG-26 MG TABLET PO SCH ×2 (09:58→20:26)
[2018-09-17] MEDS: ASPIRIN 81 MG PO SCH (09:58)
[2018-09-17] MEDS: FUROSEMIDE 20 MG TAB PO SCH ×2 (09:58→17:10)
[2018-09-17] MEDS: SPIRONOLACTONE 25 MG TAB PO SCH (09:58)
[2018-09-17] MEDS: FAMOTIDINE 20 MG/2 ML VIAL IV SCH (09:58)
[2018-09-17] MEDS: NICOTINE 21MG/24HR PATCH TRANSDERM SCH (09:59)
[2018-09-17 11:33] LABS: Hemoglobin A1C 9.6 % (4.0-6.0)
[2018-09-17 12:02] LABS: Glucose,Whole Blood 103 mg/dL (75-99)
--- NOTE | 2018-09-17 14:31 | P.PN ---
Subjective This is a pleasant 53 years old -[place] male with past medical history of chest pain, coronary artery disease, diabetes mellitus, hypertension, congestive heart failure, who follows up with Dr. Jorge, he [facility] a [facility]. For the last 2 nights he has paroxysmal nocturnal dyspnea when he walks up gasping for air. He denies chest pain or other dyspnea symptoms. No coughing. No abdominal pain. No change in urine or bowel habits. No fever. Patient is not very well compliant with his medication. Patient is currently smoking about 1 pack per day, he denies alcohol or illicit drugs. On admission vitals are stable. CBC and BMP and liver enzymes were unremarkable. Troponin is elevated at 0.04 and 0.03. Urinalysis is no suspici ous for infection.chest x-ray: Mild cardiomegaly with no acute findings. 09/17/2018 Patients with no chest pain or dyspnea, he denies any paroxysmal nocturnal dyspnea and tach overnight. However overnight he developed a marked 1-1/2 minutes of nonsustained V. tach during which he was sitting at the age of the patient and educated. Patient Vitas looks stable and currently blood pressure on the high side 172/139, he is saturating 97% on room air, patient is afebrile. Potassium was 3.9, creatinine 1.01, sugar is controlled. Patient looks a little bit dehydrated, his Lasix was lowered to 20 mg orally twice daily. He is on Coreg 12.5 mg twice daily. Review of systems CONSTITUTIONAL: No fever, no malaise, no fatigue. HEENT: No recent visual problems or hearing problems. Denied any sore throat. CARDIOVASCULAR: No orthopnea, PND, no palpitations, no syncope. PULMONARY: No shortness of breath, no cough, no hemoptysis. GASTROINTESTINAL: No diarrhea, no nausea, no vomiting, no abdominal pain. Normoactive bowel sounds. NEUROLOGICAL: No headaches, no weakness, no numbness. HEMATOLOGICAL: Denies any bleeding or petechiae. GENITOURINARY: Denies any burning micturition, frequency, or urgency. MUSCULOSKELETAL/RHEUMATOLOGICAL: Denies any joint pain, swelling, or any muscle pain. ENDOCRINE: Denies any polyuria or polydipsia. Medication: Aspirin 81 mg, Lipitor 40 mg, Coreg 12.5 mg, Pepcid 20 mg, Lasix 20 mg, heparin 5000 units, hydrochlorothiazide 25 mg, NovoLog insulin 5 units with meals, Levemir 30 units, nicotine patch,, entresto 1 tab, , Aldactone 25 mg Objective - Vital Signs Vital signs: Vital Signs Temp 98.5 F 09/17/18 09:49 Pulse 94 09/17/18 12:00 Resp 18 09/17/18 12:00 BP 172/139 09/17/18 09:49 Pulse Ox 97 09/17/18 09:49 Intake & Output 09/16/18 09/17/18 09/17/18 18:59 06:59 18:59 Intake Total 240 462 Output Total 600 Balance -360 462 Weight 123.7 kg 119.7 kg Intake: Oral 240 462 Output: Urine 600 Other: Voiding Method Urinal Urinal Urinal # Voids 1 1 1 # Bowel Movements 0 - Exam GENERAL: The patient is alert and oriented x3, not in any acute distress. Well developed, well nourished. HEENT: Pupils are round and equally reacting to light. EOMI. No scleral icterus. No conjunctival pallor. Normocephalic, atraumatic. No pharyngeal erythema. No thyromegaly. CARDIOVASCULAR: S1 and S2 present. No murmurs, rubs, or gallops. PULMONARY: Chest is clear to auscultation, no wheezing or crackles. ABDOMEN: Soft, nontender, nondistended, normoactive bowel sounds. No palpable organomegaly. MUSCULOSKELETAL: No joint swelling or deformity. EXTREMITIES: No cyanosis, clubbing, or pedal edema. NEUROLOGICAL: Gross neurological examination did not reveal any focal deficits. SKIN: No rashes. - Labs CBC & Chem 7: 09/16/18 05:54 09/17/18 06:43 Labs: Abnormal Lab Results - Last 24 Hours (Table) 09/16/18 09/16/18 09/16/18 Range/Units 11:21 17:29 21:04 POC Glucose (mg/dL) 198 H (75-99) mg/dL Hemoglobin A1c 9.6 H (4.0-6.0) % Calcium (8.4-10.2) mg/dL Troponin I 0.037 H* (0.000-0.034) ng/mL 09/17/18 09/17/18 09/17/18 Range/Units 06:05 06:43 11:53 POC Glucose (mg/dL) 101 H 103 H (75-99) mg/dL Hemoglobin A1c (4.0-6.0) % Calcium 10.5 H (8.4-10.2) mg/dL Troponin I (0.000-0.034) ng/mL Assessment and Plan Assessment: Acute on chronic congestive heart failure No sustained symptomatic ventricular tachycardia Hypertension Type 2 diabetes mellitus Nicotine dependence None administered. He Plan: This is a pleasant 53 years old -[place] male who presents with signs symptoms of worsening congestive heart failure. Continue with diuretic, beta ibis and nicotine patch, Aldactone, and entresto. Cardiology evaluation is appreciated Labs and medication were reviewed.. Continue same treatment. Continue with symptomatic treatment. Resume home medication. Monitor lytes and vitals. DVT and GI prophylaxis. Further recommendations of the clinical course of the patient DVT prophylaxis: Subcutaneous heparin GI Prophylaxis: Pepcid PT/OT: Pending Prognosis is guarded
[2018-09-17 16:13] LABS: Hepatitis A Antibody IgM Non-Reactive (Non-Reactive); Hepatitis B Core IgM Non-Reactive (Non-Reactive)
[2018-09-17 16:43] LABS: Glucose,Whole Blood 107 mg/dL (75-99)
[2018-09-17] MEDS: FAMOTIDINE 20 MG TAB PO SCH (20:26)
[2018-09-17 21:06] LABS: Glucose,Whole Blood 152 mg/dL (75-99)
[2018-09-17] MEDS: INSULIN DETEMIR (LEVEMIR) 100 UNIT/ML SYR SQ SCH (21:06)
[2018-09-17 21:11] VITALS: RESP 18
[2018-09-18 06:50] LABS: Glucose,Whole Blood 149 mg/dL (75-99)
[2018-09-18] MEDS: CARVEDILOL 6.25 MG TAB PO SCH (07:03)
[2018-09-18] MEDS: INSULIN ASPART (NovoLOG) 100 UNIT/ML VIAL SQ SCH ×2 (07:04→12:17)
[2018-09-18 08:12] VITALS: TEMP 97.9
[2018-09-18] MEDS: FUROSEMIDE 20 MG TAB PO SCH (08:12)
[2018-09-18] MEDS: FAMOTIDINE 20 MG TAB PO SCH (08:12)
[2018-09-18] MEDS: SACUBITRIL/VALSARTAN 24 MG-26 MG TABLET PO SCH (08:12)
[2018-09-18] MEDS: ATORVASTATIN 40 MG TAB PO SCH (08:12)
[2018-09-18] MEDS: SPIRONOLACTONE 25 MG TAB PO SCH (08:12)
[2018-09-18] MEDS: HEPARIN SODIUM,PORCINE 5,000 UNIT/ML 1 ML VIAL SQ SCH (08:12)
[2018-09-18] MEDS: HYDROCHLOROTHIAZIDE 25 MG TAB PO SCH (08:12)
[2018-09-18] MEDS: NICOTINE 21MG/24HR PATCH TRANSDERM SCH (08:12)
[2018-09-18] MEDS: ASPIRIN 81 MG PO SCH (08:12)
[2018-09-18 12:04] LABS: Glucose,Whole Blood 136 mg/dL (75-99)
[2018-09-18 12:12] VITALS: BP 144/96; PULSE 71
--- NOTE | 2018-09-18 13:25 | P.DS ---
Providers Date of admission: 09/16/18 07:20 Attending physician: Akiko De La Rosa Consults: 09/16/18 07:20 Consult Physician Routine Consulting Provider: Willie Alston Consult Reason/Comments: CHF exacerbation Do you want consulting provider notified?: Yes Primary care physician: Ata Gutierrez Hospital Course: Diagnoses: Acute on chronic systolic congestive heart failure Episodes of SVT None-adherence to therapy Hypertension Nicotine dependence Type 2 diabetes mellitus Nicotine dependence Hospital course: This is a pleasant 53 years old -F[place] male with past medical history of chest pain, coronary artery disease, diabetes mellitus, hypertension, congestive heart failure, who follows up with Dr. Martinez, he lives in a [place] [facility]. For the last 2 nights he has paroxysmal nocturnal dyspnea when he walks up gasping for air. He denies chest pain or other dyspnea symptoms. No coughing. No abdominal pain. No change in urine or bowel habits. No fever. Patient has been evaluated by cardiology team. He was treated with diuretic and his antihypertensive medication were adjusted and updated. Patient feels better as and he is been asymptomatic on the day of discharge with no chest pain, no dyspnea. Denies abdominal pain. He denies diet well and has regular bowel movement. No fever. Patient was eager to go to his [place] [facility]. Patient was cleared by cardiology team for discharge Problems and management plan were discussed with the patient and he verbalized understanding and acceptance Patient was found stable and can be discharged home however he needs follow-up as an outpatient. 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 Agrees with the appointments and the timing and he states he will follow-up. Gen: patient is a AAOx3, no distress CVS: S1-S2, RRR, no murmur Lungs: B/L CTA, no wheezing Abdomen: soft, no distention, no tenderness, positive bowel sounds Extremity: no leg edema or induration Time spent more than 35 minutes Patient Condition at Discharge: Fair Plan - Discharge Summary Discharge Rx Participant: No New Discharge Prescriptions: No Action Insulin Glargine,Hum.rec.anlog [Cachorroaglleonid Monroepen U-100] 30 unit SQ HS #30 syr Metoprolol Tartrate [Lopressor] 50 mg PO BID #60 tab Insulin Lispro [Admelog] 5 unit SQ TID-W/MEALS #1 vial Lisinopril 20 mg PO DAILY Discharge Medication List Insulin Glargine,Hum.rec.anlog [Cachorroaglleonid Monroepen U-100] 30 unit SQ HS #30 syr 07/07/18 [Rx] Insulin Lispro [Admelog] 5 unit SQ TID-W/MEALS #1 vial 07/07/18 [Rx] Metoprolol Tartrate [Lopressor] 50 mg PO BID #60 tab 07/07/18 [Rx] Lisinopril 20 mg PO DAILY 09/16/18 [History] Follow up Appointment(s)/Referral(s): Brenda Berumen MD [Primary Care Provider] - 09/23/18 1:50 pm () Juarez Orona MD [STAFF PHYSICIAN] - 09/28/18 10:00 am (Thursday) Patient Instructions/Handouts: Heart Failure (DC) Activity/Diet/Wound Care/Special Instructions: Entresto coupon in chart, send to pharmacy at discharge or give to patient if patient using a pharmacy other than [facility]
--- NOTE | 2018-09-18 13:56 | PN ---
PROGRESS NOTE Mr. Barnes is a 53-year-old male with history of hypertension and history of nonischemic cardiomyopathy who presented with worsening dyspnea and uncontrolled hypertension. He is feeling better today. He is ambulating without difficulty, denying any symptoms of chest pain, denying any dizziness or palpitations. He has no further arrhythmia. He continues to be on Lipitor 40 mg daily, Coreg 12.5 mg twice a day, furosemide 20 mg twice a day, hydrochlorothiazide 25 mg daily, Aldactone 25 mg daily, valsartan 24-26 mg twice a day in addition to insulin. PHYSICAL EXAMINATION: VITAL SIGNS: Blood pressure 144/90 with a heart rate in the 70s. LUNGS: Clear. HEART: Regular rate and rhythm. S1, S2. No S3. No rub. ABDOMEN: Soft, nontender. EXTREMITIES: No edema. IMPRESSION: 1. Nonischemic cardiomyopathy with symptoms of congestive heart failure, stable. 2. Hypertension, under better control. 3. Chronic tobacco use. 4. Diabetes mellitus. RECOMMENDATIONS: From the cardiac standpoint, he should be able to be discharged home today. I will cut down the Lasix to once a day, and I will increase the Coreg to 25 mg twice a day. The importance of compliance was discussed with him. He will be followed in the office in 2 weeks. Depending on his progress, further recommendations will be made. MMBETTY / ORLYN: [id number] /
[2018-09-18] MEDS ORDERED: CARVEDILOL 12.5 MG TAB PO SCH (17:30)
[2018-09-19] MEDS ORDERED: FUROSEMIDE 20 MG TAB PO SCH (09:00)
== END 2018-09-18 15:42 | disposition home or self-care (01) | DRG 292 ==
LOC: EC 05:09 → 3SCARD 07:20
PROVIDERS: ADMIT Hospitalist; ATTEND Hospitalist
DX: I11.0 Hypertensive heart disease with heart failure (principal); I47.1 Supraventricular tachycardia; I47.2 Ventricular tachycardia; I50.23 Acute on chronic systolic (congestive) heart failure; E86.0 Dehydration; I42.9 Cardiomyopathy, unspecified; E11.9 Type 2 diabetes mellitus without complications; F17.210 Nicotine dependence, cigarettes, uncomplicated; F41.9 Anxiety disorder, unspecified; I25.10 Atherosclerotic heart disease of native coronary artery without angina pectoris; M17.11 Unilateral primary osteoarthritis, right knee; R77.9 Abnormality of plasma protein, unspecified; Z79.4 Long term (current) use of insulin; Z79.82 Long term (current) use of aspirin; Z79.899 Other long term (current) drug therapy; Z88.0 Allergy status to penicillin; Z91.19 Patient's noncompliance with other medical treatment and regimen; Z80.41 Family history of malignant neoplasm of ovary
CPT/HCPCS: 36415; 71046; 80053; 80061; 80074; 81003; 83036; 83735; 83880; 84484; 85025; 85610; 85730; 96374; 96375; 99285